=== PATIENT | female | born 1935 | race Caucasian/White ===

== ENCOUNTER 2020-06-05 12:39 | Inpatient (IN) | payer MEDICARE, OTHER ==
[~2020-06-05] VITALS: Ht 154.9 cm; Wt 55.3 kg
--- NOTE | 2020-06-05 12:54 | ED.ADGEN ---
General Adult HPI: HPI: Patient is a 85 year old female brought in by EMS from home for weakness and lethargy beginning since she woke up this morning. Patient states she normally is alert and active and he is in her normal state of health yesterday. Patient has had new cough today. Patient has a history significant for recent extensive bilateral pulmonary embolism and DVT in her right leg. Was hospitalized at [facility] 2 to 3 weeks ago and started on Eliquis, they had planned placement of a IVC filter but were unable due to the extent of the clot up into her IVC. Patient says she has no shortness of breath but denies any chest pain. She has had no lower extremity edema with the blood clots. For EMS she was borderline hypotensive, patient has a history of hypertension and says she took her blood pressure medication this morning, but her blood pressure is usually higher. She denies any recent medication changes. Has a history of asthma, hypertension, hypothyroid and now DVT and PE. She denies any prior history of blood clots. Patient states she has a history of urinary tract infections but denies any urinary symptoms. Patient states she has been having normal p.o. intake, and no vomiting or diarrhea. Review of Systems: Review of Systems: Negative other than mentioned in HPI Current Medications: Current Medications Medications (Trade) Dose Ordered Sig/Danielle Start Time Stop Time Status Last Admin Dose Admin Info (CONTRAST GIVEN -- Rx MONITORING) 1 each PRN DAILY PRN 06/05/20 14:00 06/07/20 13:59 Iohexol (Omnipaque 350 Mg/ml) 75 ml 1X ONCE 06/05/20 14:00 06/05/20 14:01 DC 06/05/20 14:02 75 ML Sodium Chloride 1,000 ml @ 1,000 mls/hr 1X ONCE 06/05/20 13:45 06/05/20 14:44 DC 06/05/20 14:50 1,000 MLS/HR Allergies: Allergies: Allergies Coded Allergies Type Severity Reaction Last Updated Verified Penicillins Allergy Unknown UNKNOWN 06/05/20 Yes Physical Exam: PE: Constitutional: Well developed, well nourished, no acute distress, non-toxic appearance. [] HENT: Normocephalic, atraumatic, bilateral external ears normal, oropharynx moist, no oral exudates, nose normal. [] Eyes: PERRLA, EOMI, conjunctiva normal, no discharge. [] Neck: Normal range of motion, no tenderness, supple, no stridor. [] Cardiovascular:Heart rate regular rhythm, no murmur [] Lungs & Thorax: Bilateral breath sounds clear to auscultation [] faint wheezes in right upper lobe Abdomen: Bowel sounds normal, soft, no tenderness, no masses, no pulsatile masses. [] Skin: Warm, dry, no erythema, no rash. [] Back: No tenderness, no CVA tenderness. [] Extremities: No tenderness, no cyanosis, no clubbing, ROM intact, no edema. [] Neurologic: Alert and oriented X 3, normal motor function, normal sensory function, no focal deficits noted. [] Psychologic: Affect normal, judgement normal, mood normal. [] Current Patient Data: Labs: Laboratory Tests Test 06/05/20 13:03 06/05/20 13:23 06/05/20 14:08 White Blood Count 10.7 x10^3/uL (4.0-11.0) Red Blood Count 4.28 x10^6/uL (3.50-5.40) Hemoglobin 13.8 g/dL (12.0-15.5) Hematocrit 41.0 % (36.0-47.0) Mean Corpuscular Volume 96 fL (79-100) Mean Corpuscular Hemoglobin 32 pg (25-35) Mean Corpuscular Hemoglobin Concent 34 g/dL (31-37) Red Cell Distribution Width 13.7 % (11.5-14.5) Platelet Count 183 x10^3/uL (140-400) Neutrophils (%) (Auto) 90 % (31-73) H Lymphocytes (%) (Auto) 6 % (24-48) L Monocytes (%) (Auto) 3 % (0-9) Eosinophils (%) (Auto) 0 % (0-3) Basophils (%) (Auto) 0 % (0-3) Neutrophils # (Auto) 9.6 x10^3/uL (1.8-7.7) H Lymphocytes # (Auto) 0.7 x10^3/uL (1.0-4.8) L Monocytes # (Auto) 0.3 x10^3/uL (0.0-1.1) Eosinophils # (Auto) 0.0 x10^3/uL (0.0-0.7) Basophils # (Auto) 0.0 x10^3/uL (0.0-0.2) Segmented Neutrophils % 81 % (35-66) H Band Neutrophils % 6 % (0-9) Lymphocytes % 10 % (24-48) L Monocytes % 3 % (0-10) Platelet Estimate Adequate (ADEQUATE) Poikilocytosis Slight Schistocytes Few Prothrombin Time 18.7 SEC (11.7-14.0) H Prothrombin Time INR 1.6 (0.8-1.1) H Activated Partial Thromboplast Time 36 SEC (24-38) Sodium Level 139 mmol/L (136-145) Potassium Level 4.1 mmol/L (3.5-5.1) Chloride Level 104 mmol/L (98-107) Carbon Dioxide Level 23 mmol/L (21-32) Anion Gap 12 (6-14) Blood Urea Nitrogen 20 mg/dL (7-20) Creatinine 1.3 mg/dL (0.6-1.0) H Estimated GFR (Cockcroft-Gault) 38.9 BUN/Creatinine Ratio 15 (6-20) Glucose Level 137 mg/dL (70-99) H Lactic Acid Level 3.0 mmol/L (0.4-2.0) H Calcium Level 8.3 mg/dL (8.5-10.1) L Phosphorus Level 3.1 mg/dL (2.6-4.7) Magnesium Level 1.8 mg/dL (1.8-2.4) Total Bilirubin 0.7 mg/dL (0.2-1.0) Aspartate Amino Transferase (AST) 25 U/L (15-37) Alanine Aminotransferase (ALT) 21 U/L (14-59) Alkaline Phosphatase 49 U/L (46-116) Troponin I Quantitative 0.080 ng/mL (0.000-0.055) DO-Slk-D-Type Natriuretic Peptide 09983 pg/mL (0-449) H Total Protein 5.4 g/dL (6.4-8.2) L Albumin 2.8 g/dL (3.4-5.0) L Albumin/Globulin Ratio 1.1 (1.0-1.7) Thyroid Stimulating Hormone (TSH) 0.344 uIU/mL (0.358-3.74) L Influenza Type A Antigen Negative (NEGATIVE) Influenza Type B Antigen Negative (NEGATIVE) Urine Collection Type Unknown Urine Color Yellow Urine Clarity Clear Urine pH 5.5 (<5.0-8.0) Urine Specific [place] 1.010 (1.000-1.030) Urine Protein Negative mg/dL (NEG-TRACE) Urine Glucose (UA) Negative mg/dL (NEG) Urine Ketones (Stick) Negative mg/dL (NEG) Urine Blood Negative (NEG) Urine Nitrite Negative (NEG) Urine Bilirubin Negative (NEG) Urine Urobilinogen Dipstick 0.2 mg/dL (0.2 mg/dL) Urine Leukocyte Esterase Negative (NEG) Urine RBC 0 /HPF (0-2) Urine WBC 1-4 /HPF (0-4) Urine Squamous Epithelial Cells Mod /LPF Urine Bacteria Many /HPF (0-FEW) Urine Hyaline Casts Few /HPF Laboratory Tests 06/05/20 13:03 Laboratory Tests 06/05/20 13:03 Vital Signs: Vital Signs Date Time Temp Pulse Resp B/P (MAP) Pulse Ox O2 Delivery O2 Flow Rate FiO2 06/05/20 12:39 97.4 77 20 86/54 (65) 97 Room Air 97.4 EKG: EKG: Sinus rhythm, heart rate 71, left axis deviation, borderline ST depressions in V3, V4, V5, V6, no reciprocal changes/elevation identified [] Heart Score: Risk Factors: Risk Factors: DM, Current or recent (<one month) smoker, HTN, HLP, family history of CAD, obesity. Risk Scores: Score 0 - 3: 2.5% MACE over next 6 weeks - Discharge Home Score 4 - 6: 20.3% MACE over next 6 weeks - Admit for Clinical Observation Score 7 - 10: 72.7% MACE over next 6 weeks - Early Invasive Strategies Radiology/Procedures: Radiology/Procedures: EXAM: CT Pulmonary Angiogram INDICATION: Reason: EXTENSIVE BILATERAL PE FOLLOW UP / Spl. Instructions: [id number] 75ML / History: TECHNIQUE: Multi-detector row images were acquired from the thoracic inlet through the upper abdomen with the use of IV contrast. Sagittal and coronal images were acquired from the transaxial data. MIP images of the pulmonary arteries were obtained. All CT scans performed at this facility utilize dose optimization techniques as appropriate to the exam, including the following: Automated exposure control and adjustment of the mA and/or KV according to patient size (this includes techniques or standardized protocols for targeted exams where dose is indication/reason for exam). IV CONTRAST: Administered COMPARISON: None FINDINGS: PULMONARY ARTERIES: Borderline enlargement of the main pulmonary artery to 3.7 cm. There are wall adherent filling defects compatible with chronic clots, including a 3.8 cm long, 1.3 cm deep adherent clot on the posterior wall of the proximal right main pulmonary artery. Additional filling defects in the pulmonary arteries with weblike morphology are seen, compatible with evolving pulmonary emboli such as in the anterior basal right lower lobe. There is persistent occlusion of the anterior segment right upper lobe pulmonary artery. CARDIOVASCULAR: Scattered aortic mural calcifications. Normal caliber thoracic aorta measuring 3.3 cm in the ascending portion. Coronary calcifications also present. The heart is mildly enlarged but shows thickened epicardial fat, measuring approximately 1.8 cm over the right ventricle free wall. There is no dilation of the right ventricular chamber to suggest right heart strain. There is thinning of the myocardium of the apex of the left ventricle, at risk for eventual formation of a small apical aneurysm. MEDIASTINUM & CHANDRAKANT: No adenopathy or masses. LUNGS: Reticular opacities in the right middle lobe are present, nonspecific and could reflect evolving infarcts versus subsegmental atelectatic changes or atypical infection. PLEURAL SPACE: No pleural effusions or pneumothorax. OSSEOUS & SOFT TISSUE: Unremarkable ABDOMEN: The visualized portions of the upper abdomen are unremarkable. IMPRESSION: 1. Chronic appearing pulmonary emboli, with occlusion of the anterior right upper lobe pulmonary artery and patchy groundglass opacities in the right upper lobe that could reflect evolving infarcts versus pneumonitis from atypical infection. 2. 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 [] Course & Med Decision Making: Course & Med Decision Making Pertinent Labs and Imaging studies reviewed. (See chart for details) Consulted IR for the pulmonary embolus attached to right pulmonary artery wall. The bacteremia recommended, will follow the patient for possible IVC filter placement. Would like imaging of the IVC and iliacs. We will do tomorrow due to patient's limited EGFR and she is already heparin contrast load today. Consulted hospitalist for admission, patient agrees to plan [] Sierra Disclaimer: Sierra Disclaimer: This electronic medical record was generated, in whole or in part, using a voice recognition dictation system. Departure Departure Impression: Primary Impression: Pulmonary emboli Disposition: ADMITTED INPT THIS HOSP Admitting Physician: ALICIA Condition: STABLE Referrals: ROSCOE MELENDEZ (PCP) DAMON HOUSER MD Jun 05, 2020 12:54
[2020-06-05] MEDS ORDERED: IV NORMAL SALINE 1000ML BAG 1,000 ML IV ONE ×2 (13:00→13:45)
[2020-06-05 13:19] LABS: BASO % 0 % (0-3); EOS % 0 % (0-3); HEMOGLOBIN 13.8 g/dL (12.0-15.5); LYMPH # 0.7 x10^3/uL (1.0-4.8); LYMPH % 6 % (24-48); MEAN CORPUSCULAR HEMOGLOBIN 32 pg (25-35); MEAN CORPUSCULAR HGB CONC 34 g/dL (31-37); MEAN CORPUSCULAR VOLUME 96 fL (79-100); MONO # 0.3 x10^3/uL (0.0-1.1); MONO % 3 % (0-9); NEUT # 9.6 x10^3/uL (1.8-7.7); NEUT % 90 % (31-73); PLATELET COUNT 183 x10^3/uL (140-400); RED BLOOD COUNT 4.28 x10^6/uL (3.50-5.40); RED CELL DISTRIBUTION WIDTH 13.7 % (11.5-14.5); WHITE BLOOD COUNT 10.7 x10^3/uL (4.0-11.0)
[2020-06-05 13:28] LABS: PROTHROMBIN TIME PATIENT 18.7 SEC (11.7-14.0)
[2020-06-05 13:36] LABS: CALCIUM 8.3 mg/dL (8.5-10.1); CREATININE 1.3 mg/dL (0.6-1.0); GFR 38.9; POTASSIUM 4.1 mmol/L (3.5-5.1)
[2020-06-05 13:48] LABS: ALBUMIN 2.8 g/dL (3.4-5.0); ALBUMIN/GLOBULIN RATIO 1.1 (1.0-1.7); MAGNESIUM 1.8 mg/dL (1.8-2.4); PHOSPHORUS 3.1 mg/dL (2.6-4.7); TOTAL BILIRUBIN 0.7 mg/dL (0.2-1.0); TOTAL PROTEIN 5.4 g/dL (6.4-8.2)
[2020-06-05 13:55] LABS: INFLUENZA A PATIENT NEGATIVE (NEGATIVE); INFLUENZA B PATIENT NEGATIVE (NEGATIVE)
[2020-06-05] MEDS ORDERED: CONTRAST GIVEN. MC PRN (14:00)
[2020-06-05] MEDS ORDERED: IOHEXOL 350 MG/ML 100 ML VIAL. IV ONE (14:00)
[2020-06-05] MEDS ORDERED: HEPARIN 25,000UTS/250ML PREMIX 250 ML IV PRN (14:30)
[2020-06-05] MEDS ORDERED: HEPARIN for IV BOLUS 10,000 UNIT/10 ML VIAL. IV PRN ×2 (14:30)
[2020-06-05] MEDS ORDERED: HEPARIN for IV BOLUS 10,000 UNIT/10 ML VIAL. IV ONE (14:30)
[2020-06-05 14:32] LABS: BILIRUBIN,URINE NEGATIVE (NEG); CLARITY,URINE CLEAR; COLOR,URINE YELLOW; NITRITE,URINE NEGATIVE (NEG); PH,URINE 5.5 (<5.0-8.0); PROTEIN,URINE NEGATIVE (NEG-TRACE); UROBILINOGEN,URINE 0.2 mg/dL (0.2 mg/dL)
[2020-06-05 14:38] LABS: % BANDS 6 % (0-9); % LYMPHS 10 % (24-48); % MONOS 3 % (0-10); % SEGS 81 % (35-66); PLT ESTIMATE ADEQUATE (ADEQUATE); POIKILOCYTOSIS SLIGHT; SCHISTOCYTES FEW
[2020-06-05 14:41] LABS: BACTERIA,URINE MANY /HPF (0-FEW); HYALINE CASTS, URINE FEW /HPF
[2020-06-05 14:42] LABS: RBC,URINE 0 /HPF (0-2)
--- NOTE | 2020-06-05 15:26 | RAD ---
EXAM: CT Pulmonary Angiogram INDICATION: Reason: EXTENSIVE BILATERAL PE FOLLOW UP / Spl. Instructions: [id number] 75ML / History: TECHNIQUE: Multi-detector row images were acquired from the thoracic inlet through the upper abdomen with the use of IV contrast. Sagittal and coronal images were acquired from the transaxial data. CA P images of the pulmonary arteries were obtained. All CT scans performed at this facility utilize dos e optimization techniques as appropriate to the exam, including the following: Automated exposure con trol and adjustment of the mA and/or KV according to patient size (this includes techniques or standa rdized protocols for targeted exams where dose is indication/reason for exam). IV CONTRAST: Administered COMPARISON: None FINDINGS: PULMONARY ARTERIES: Borderline enlargement of the main pulmonary artery to 3.7 cm. There are wall ad herent filling defects compatible with chronic clots, including a 3.8 cm long, 1.3 cm deep adherent c lot on the posterior wall of the proximal right main pulmonary artery. Additional filling defects in the pulmonary arteries with weblike morphology are seen, compatible with evolving pulmonary emboli velazquez ch as in the anterior basal right lower lobe. There is persistent occlusion of the anterior segment r ight upper lobe pulmonary artery. CARDIOVASCULAR: Scattered aortic mural calcifications. Normal caliber thoracic aorta measuring 3.3 c m in the ascending portion. Coronary calcifications also present. The heart is mildly enlarged but sh ows thickened epicardial fat, measuring approximately 1.8 cm over the right ventricle free wall. Ther e is no dilation of the right ventricular chamber to suggest right heart strain. There is thinning of the myocardium of the apex of the left ventricle, at risk for eventual formation of a small apical a neurysm. MEDIASTINUM & CHANDRAKANT: No adenopathy or masses. LUNGS: Reticular opacities in the right middle lobe are present, nonspecific and could reflect evolvi ng infarcts versus subsegmental atelectatic changes or atypical infection. PLEURAL SPACE: No pleural effusions or pneumothorax. OSSEOUS & SOFT TISSUE: Unremarkable ABDOMEN: The visualized portions of the upper abdomen are unremarkable. IMPRESSION: 1. Chronic appearing pulmonary emboli, with occlusion of the anterior right upper lobe pulmonary blake ry and patchy groundglass opacities in the right upper lobe that could reflect evolving infarcts vers us pneumonitis from atypical infection. 2. 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 FOR INTERNAL CODING PURPOSES Critical result: Findings discussed with Dr. Meaghan Cerrato at 06/05/2020 2:45 PM. RESULT CODE: (C) Electronically signed by: Pat Johnson MD (06/05/2020 3:24 PM) [id number]
--- NOTE | 2020-06-05 15:29 | EKG ---
[facility] [address] [place] [address] Test Date: 2020-06-05 Test Time: 12:52:16 Pat Name: IAIN CORTEZ Department: Room: Gender: F Proctologist: : 1935 Requested By: DAMON HOUSER Order Number: [id number] Reading MD: Measurements Intervals [place] Rate: 71 P: 12 WA: 152 QRS: -26 QRSD: 74 T: 14 QT: 378 QTc: 415 Interpretive Statements SINUS RHYTHM ATRIAL PREMATURE COMPLEX(ES) LEFTWARD AXIS CONSIDER LEFT VENTRICULAR HYPERTROPHY ST & T ABNORMALITY, CONSIDER ANTERIOR ISCHEMIA OR LEFT VENTRICULAR STRAIN ABNORMAL ECG RI6.02 No previous ECG available for comparison
[2020-06-05] MEDS ORDERED: MORPHINE SULFATE 2 MG/ML VIAL. IV PRN (15:45)
[2020-06-05] MEDS ORDERED: MAGNESIUM HYDROXIDE 2,400 MG/30 ML ORAL.SUSP. PO PRN (15:45)
[2020-06-05] MEDS ORDERED: MAG HYDROX/ALUMINUM HYD/SIMETH 30 ML ORAL.SUSP PO PRN (15:45)
[2020-06-05] MEDS ORDERED: BISACODYL 10 MG SUPP.RECT. PR PRN (15:45)
[2020-06-05] MEDS ORDERED: CALCIUM CARBONATE 500 MG TAB.CHEW PO PRN (15:45)
[2020-06-05] MEDS ORDERED: ZOLPIDEM 5 MG TABLET. PO PRN (15:45)
[2020-06-05] MEDS ORDERED: ONDANSETRON PF 4 MG/2 ML VIAL. IVP PRN (15:45)
[2020-06-05] MEDS ORDERED: ACETAMINOPHEN 325 MG TABLET. PO PRN (15:45)
--- NOTE | 2020-06-05 16:14 | PDOC1 ---
History and Physical Date of Admission Date of Admission DATE: 06/05/20 TIME: 15:54 Identification/Chief Complaint Chief Complaint Cough, shortness of breath, weakness Source Source: Chart review, Patient History of Present Illness History of Present Illness Patient is a 85-year-old female with past medical history PE on Eliquis, who presents to the ER with complaints of shortness of breath since this morning. She reports associated nonproductive cough, weakness, lethargy and nausea. She was recently treated at [facility] for extensive bilateral pulmonary embolism and DVT in the right lower extremity. She was started on Eliquis with plan to place IVC filter, but this was unable to be performed due to the extent of her clot up to her IVC. She denies any prior history of DVT or PE, and states she has been compliant with her Eliquis. Of note she was receiving physical therapy at home, and her therapist tested positive for COVID-19. Patient and family were tested with negative results. CTA on admission compatible with evolving pulmonary emboli such as in the anterior basal right lower lobe. EKG is concerning for right heart strain. Will admit patient for further medical management. Past Medical History Past Medical History DVT, PE, hypertension, asthma, UTI Past Surgical History Past Surgical History Appendectomy, cholecystectomy, hysterectomy, shoulder surgery Family History Family History Denies family history of DVT or PE Social History Smoke: No ALCOHOL: none Drugs: None Current Medications Current Medications Current Medications Sodium Chloride 1,000 ml @ 1,000 mls/hr 1X ONCE IV Last administered on 06/05/20at 13:10; Start 06/05/20 at 13:00; Stop 06/05/20 at 13:59; Status DC Sodium Chloride 1,000 ml @ 1,000 mls/hr 1X ONCE IV Last administered on 06/05/20at 14:50; Start 06/05/20 at 13:45; Stop 06/05/20 at 14:44; Status DC Iohexol (Omnipaque 350 Mg/ml) 75 ml 1X ONCE IV Last administered on 06/05/20at 14:02; Start 06/05/20 at 14:00; Stop 06/05/20 at 14:01; Status DC Info (CONTRAST GIVEN -- Rx MONITORING) 1 each PRN DAILY PRN MC SEE COMMENTS; Start 06/05/20 at 14:00; Stop 06/07/20 at 13:59 Heparin Sodium (Porcine) (Heparin Sodium) 4,350 unit 1X ONCE IV Last administered on 06/05/20at 14:53; Start 06/05/20 at 14:30; Stop 06/05/20 at 14 :31; Status DC Heparin Sodium/ Dextrose 250 ml @ 8.72 mls/hr CONT PRN IV PER PROTOCOL Last administered on 06/05/20at 14:56; Start 06/05/20 at 14:30 Heparin Sodium (Porcine) (Heparin Sodium) 1,650 unit PRN Q6HRS PRN IV FOR UFH LEVEL LESS THAN 0.2; Start 06/05/20 at 14:30 Heparin Sodium (Porcine) (Heparin Sodium) 800 unit PRN Q6HRS PRN IV FOR UFH LEVEL 0.2 - 0.29; Start 06/05/20 at 14:30 Ondansetron HCl (Zofran) 4 mg PRN Q6HRS PRN IVP NAUSEA/VOMITING; Start 06/05/20 at 15:45 Al Hydroxide/Mg Hydroxide (Mylanta Plus Xs) 30 ml PRN Q3HRS PRN PO HEARTBURN / GAS; Start 06/05/20 at 15:45 Calcium Carbonate/ Glycine (Tums) 500 mg PRN Q3HRS PRN PO UPSET STOMACH; Start 06/05/20 at 15:45 Zolpidem Tartrate (Ambien) 5 mg PRN QHS PRN PO INSOMNIA, MAY REPEAT IN 1HR; Start 06/05/20 at 15:45 Morphine Sulfate (Morphine Sulfate) 2 mg PRN Q1HR PRN IV PAIN; Start 06/05/20 at 15:45 Acetaminophen (Tylenol) 650 mg PRN Q6HRS PRN PO Headaches, Temp > 101.5F; Start 06/05/20 at 15:45 Magnesium Hydroxide (Milk Of Magnesia) 2,400 mg PRN Q12HR PRN PO CONSTIPATION; Start 06/05/20 at 15:45 Bisacodyl (Dulcolax Supp) 10 mg PRN DAILY PRN [place] CONSTIPATION; Start 06/05/20 at 15:45 Sodium Chloride 1,000 ml @ 75 mls/hr [id number] IV ; Start 06/05/20 at 16:00 Tramadol HCl (Ultram) 50 mg PRN Q6HRS PRN PO PAIN; Start 06/05/20 at 16:00 Allergies Allergies: Coded Allergies: Penicillins (Verified Allergy, Unknown, UNKNOWN, 06/05/20) ROS Review of System GENERAL: Weakness. Denies history of fever or recent weight change. SKIN: No bruising, hair changes or rashes. EYES: No blurred, double or loss of vision. NOSE AND THROAT: No history of nosebleeds, hoarseness or sore throat. HEART: Denies chest pain, denies palpitations. LUNGS: Cough. Denies hemoptysis. GASTROINTESTINAL: Nausea. Denies vomiting, abdominal pain. GENITOURINARY: Denies dysuria, frequency, urgency, hematuria. NEUROLOGIC: Denies history of numbness, tingling, tremor or weakness. PSYCHIATRIC: Denies anxiety, denies depression. ENDOCRINE: No history of heat or cold intolerance, polyuria or polydipsia. EXTREMITIES: Denies muscle weakness, joint pain, pain on walking or stiffness. Physical Exam Physical Exam General: Alert, Oriented X3, Cooperative, No acute distress HEENT: PERRLA, EOMI Lungs: Bilateral crackles, breathing on room air Heart: RRR, no murmurs Cardiovascular: S1, S2 Abdomen: Normal bowel sounds, Soft, No tenderness Extremities: No clubbing, No cyanosis Skin: No rashes, No significant lesion Neuro: Normal speech, Normal tone, Sensation intact Psych/Mental Status: Mental status NL, Mood NL Vitals Vitals Vital Signs Date Time Temp Pulse Resp B/P (MAP) Pulse Ox O2 Delivery O2 Flow Rate FiO2 06/05/20 12:39 97.4 77 20 86/54 (65) 97 Room Air 97.4 Labs Labs Laboratory Tests Test 06/05/20 13:03 06/05/20 13:23 06/05/20 14:08 White Blood Count 10.7 x10^3/uL (4.0-11.0) Red Blood Count 4.28 x10^6/uL (3.50-5.40) Hemoglobin 13.8 g/dL (12.0-15.5) Hematocrit 41.0 % (36.0-47.0) Mean Corpuscular Volume 96 fL (79-100) Mean Corpuscular Hemoglobin 32 pg (25-35) Mean Corpuscular Hemoglobin Concent 34 g/dL (31-37) Red Cell Distribution Width 13.7 % (11.5-14.5) Platelet Count 183 x10^3/uL (140-400) Neutrophils (%) (Auto) 90 % (31-73) Lymphocytes (%) (Auto) 6 % (24-48) Monocytes (%) (Auto) 3 % (0-9) Eosinophils (%) (Auto) 0 % (0-3) Basophils (%) (Auto) 0 % (0-3) Neutrophils # (Auto) 9.6 x10^3/uL (1.8-7.7) Lymphocytes # (Auto) 0.7 x10^3/uL (1.0-4.8) Monocytes # (Auto) 0.3 x10^3/uL (0.0-1.1) Eosinophils # (Auto) 0.0 x10^3/uL (0.0-0.7) Basophils # (Auto) 0.0 x10^3/uL (0.0-0.2) Segmented Neutrophils % 81 % (35-66) Band Neutrophils % 6 % (0-9) Lymphocytes % 10 % (24-48) Monocytes % 3 % (0-10) Platelet Estimate Adequate (ADEQUATE) Poikilocytosis Slight Schistocytes Few Prothrombin Time 18.7 SEC (11.7-14.0) Prothromb Time International Ratio 1.6 (0.8-1.1) Activated Partial Thromboplast Time 36 SEC (24-38) Sodium Level 139 mmol/L (136-145) Potassium Level 4.1 mmol/L (3.5-5.1) Chloride Level 104 mmol/L (98-107) Carbon Dioxide Level 23 mmol/L (21-32) Anion Gap 12 (6-14) Blood Urea Nitrogen 20 mg/dL (7-20) Creatinine 1.3 mg/dL (0.6-1.0) Estimated GFR (Cockcroft-Gault) 38.9 BUN/Creatinine Ratio 15 (6-20) Glucose Level 137 mg/dL (70-99) Lactic Acid Level 3.0 mmol/L (0.4-2.0) Calcium Level 8.3 mg/dL (8.5-10.1) Phosphorus Level 3.1 mg/dL (2.6-4.7) Magnesium Level 1.8 mg/dL (1.8-2.4) Total Bilirubin 0.7 mg/dL (0.2-1.0) Aspartate Amino Transf (AST/SGOT) 25 U/L (15-37) Alanine Aminotransferase (ALT/SGPT) 21 U/L (14-59) Alkaline Phosphatase 49 U/L (46-116) Troponin I Quantitative 0.080 ng/mL (0.000-0.055) FZ-Ppy-Q-Type Natriuretic Peptide 07580 pg/mL (0-449) Total Protein 5.4 g/dL (6.4-8.2) Albumin 2.8 g/dL (3.4-5.0) Albumin/Globulin Ratio 1.1 (1.0-1.7) Thyroid Stimulating Hormone (TSH) 0.344 uIU/mL (0.358-3.74) Influenza Type A Antigen Negative (NEGATIVE) Influenza Type B Antigen Negative (NEGATIVE) Urine Collection Type Unknown Urine Color Yellow Urine Clarity Clear Urine pH 5.5 (<5.0-8.0) Urine Specific [place] 1.010 (1.000-1.030) Urine Protein Negative mg/dL (NEG-TRACE) Urine Glucose (UA) Negative mg/dL (NEG) Urine Ketones (Stick) Negative mg/dL (NEG) Urine Blood Negative (NEG) Urine Nitrite Negative (NEG) Urine Bilirubin Negative (NEG) Urine Urobilinogen Dipstick 0.2 mg/dL (0.2 mg/dL) Urine Leukocyte Esterase Negative (NEG) Urine RBC 0 /HPF (0-2) Urine WBC 1-4 /HPF (0-4) Urine Squamous Epithelial Cells Mod /LPF Urine Bacteria Many /HPF (0-FEW) Urine Hyaline Casts Few /HPF Laboratory Tests Test 06/05/20 13:03 06/05/20 13:23 06/05/20 14:08 White Blood Count 10.7 x10^3/uL (4.0-11.0) Red Blood Count 4.28 x10^6/uL (3.50-5.40) Hemoglobin 13.8 g/dL (12.0-15.5) Hematocrit 41.0 % (36.0-47.0) Mean Corpuscular Volume 96 fL (79-100) Mean Corpuscular Hemoglobin 32 pg (25-35) Mean Corpuscular Hemoglobin Concent 34 g/dL (31-37) Red Cell Distribution Width 13.7 % (11.5-14.5) Platelet Count 183 x10^3/uL (140-400) Neutrophils (%) (Auto) 90 % (31-73) Lymphocytes (%) (Auto) 6 % (24-48) Monocytes (%) (Auto) 3 % (0-9) Eosinophils (%) (Auto) 0 % (0-3) Basophils (%) (Auto) 0 % (0-3) Neutrophils # (Auto) 9.6 x10^3/uL (1.8-7.7) Lymphocytes # (Auto) 0.7 x10^3/uL (1.0-4.8) Monocytes # (Auto) 0.3 x10^3/uL (0.0-1.1) Eosinophils # (Auto) 0.0 x10^3/uL (0.0-0.7) Basophils # (Auto) 0.0 x10^3/uL (0.0-0.2) Segmented Neutrophils % 81 % (35-66) Band Neutrophils % 6 % (0-9) Lymphocytes % 10 % (24-48) Monocytes % 3 % (0-10) Platelet Estimate Adequate (ADEQUATE) Poikilocytosis Slight Schistocytes Few Prothrombin Time 18.7 SEC (11.7-14.0) Prothromb Time International Ratio 1.6 (0.8-1.1) Activated Partial Thromboplast Time 36 SEC (24-38) Sodium Level 139 mmol/L (136-145) Potassium Level 4.1 mmol/L (3.5-5.1) Chloride Level 104 mmol/L (98-107) Carbon Dioxide Level 23 mmol/L (21-32) Anion Gap 12 (6-14) Blood Urea Nitrogen 20 mg/dL (7-20) Creatinine 1.3 mg/dL (0.6-1.0) Estimated GFR (Cockcroft-Gault) 38.9 BUN/Creatinine Ratio 15 (6-20) Glucose Level 137 mg/dL (70-99) Lactic Acid Level 3.0 mmol/L (0.4-2.0) Calcium Level 8.3 mg/dL (8.5-10.1) Phosphorus Level 3.1 mg/dL (2.6-4.7) Magnesium Level 1.8 mg/dL (1.8-2.4) Total Bilirubin 0.7 mg/dL (0.2-1.0) Aspartate Amino Transf (AST/SGOT) 25 U/L (15-37) Alanine Aminotransferase (ALT/SGPT) 21 U/L (14-59) Alkaline Phosphatase 49 U/L (46-116) Troponin I Quantitative 0.080 ng/mL (0.000-0.055) PC-Qkc-M-Type Natriuretic Peptide 51167 pg/mL (0-449) Total Protein 5.4 g/dL (6.4-8.2) Albumin 2.8 g/dL (3.4-5.0) Albumin/Globulin Ratio 1.1 (1.0-1.7) Thyroid Stimulating Hormone (TSH) 0.344 uIU/mL (0.358-3.74) Influenza Type A Antigen Negative (NEGATIVE) Influenza Type B Antigen Negative (NEGATIVE) Urine Collection Type Unknown Urine Color Yellow Urine Clarity Clear Urine pH 5.5 (<5.0-8.0) Urine Specific [place] 1.010 (1.000-1.030) Urine Protein Negative mg/dL (NEG-TRACE) Urine Glucose (UA) Negative mg/dL (NEG) Urine Ketones (Stick) Negative mg/dL (NEG) Urine Blood Negative (NEG) Urine Nitrite Negative (NEG) Urine Bilirubin Negative (NEG) Urine Urobilinogen Dipstick 0.2 mg/dL (0.2 mg/dL) Urine Leukocyte Esterase Negative (NEG) Urine RBC 0 /HPF (0-2) Urine WBC 1-4 /HPF (0-4) Urine Squamous Epithelial Cells Mod /LPF Urine Bacteria Many /HPF (0-FEW) Urine Hyaline Casts Few /HPF Images Images EXAM: CT Pulmonary Angiogram INDICATION: Reason: EXTENSIVE BILATERAL PE FOLLOW UP / Spl. Instructions: [id number] / History: TECHNIQUE: Multi-detector row images were acquired from the thoracic inlet through the upper abdomen with the use of IV contrast. Sagittal and coronal images were acquired from the transaxial data. MIP images of the pulmonary arteries were obtained. All CT scans performed at this facility utilize dose optimization techniques as appropriate to the exam, including the following: Automated exposure control and adjustment of the mA and/or KV according to patient size (this includes techniques or standardized protocols for targeted exams where dose is indication/reason for exam). IV CONTRAST: Administered COMPARISON: None FINDINGS: PULMONARY ARTERIES: Borderline enlargement of the main pulmonary artery to 3.7 cm. There are wall adherent filling defects compatible with chronic clots, including a 3.8 cm long, 1.3 cm deep adherent clot on the posterior wall of the proximal right main pulmonary artery. Additional filling defects in the pulmonary arteries with weblike morphology are seen, compatible with evolving pulmonary emboli such as in the anterior basal right lower lobe. There is persistent occlusion of the anterior segment right upper lobe pulmonary artery. CARDIOVASCULAR: Scattered aortic mural calcifications. Normal caliber thoracic aorta measuring 3.3 cm in the ascending portion. Coronary calcifications also present. The heart is mildly enlarged but shows thickened epicardial fat, measuring approximately 1.8 cm over the right ventricle free wall. There is no dilation of the right ventricular chamber to suggest right heart strain. There is thinning of the myocardium of the apex of the left ventricle, at risk for eventual formation of a small apical aneurysm. MEDIASTINUM & CHNADRAKANT: No adenopathy or masses. LUNGS: Reticular opacities in the right middle lobe are present, nonspecific and could reflect evolving infarcts versus subsegmental atelectatic changes or atypical infection. PLEURAL SPACE: No pleural effusions or pneumothorax. OSSEOUS & SOFT TISSUE: Unremarkable ABDOMEN: The visualized portions of the upper abdomen are unremarkable. IMPRESSION: 1. Chronic appearing pulmonary emboli, with occlusion of the anterior right upper lobe pulmonary artery and patchy groundglass opacities in the right upper lobe that could reflect evolving infarcts versus pneumonitis from atypical infection. 2. 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 VTE Prophylaxis Ordered VTE Prophylaxis Devices: No VTE Pharmacological Prophylaxi: Yes Assessment/Plan Assessment/Plan Pulmonary emboli Failure outpatient treatment Lactic acidosis KAYDEN Vasomotor nephropathy Plan: Admit patient on IV heparin drip Consultation was placed to IR; order CTA abdomen pelvis in the morning; IV normal saline to clear IV contrast Bilateral lower extremity venous Dopplers Consultation with cardiology, EKG concerning for right heart strain and CTA chest showing advanced cardiovascular disease with calcifications of coronary arteries Consultation to pulmonology Consultation to hematology/oncology due to failure of outpatient Eliquis treatment Patient received sepsis fluid bolus IV Levaquin 750 mg x 1 to cover for possible atypical infection FEN - Cardiac diet PPX - Heparin FULL CODE Dispo - inpatient for above Justifications for Admission Other Justification PE, failed outpatient treatment SHAYNE RIVAS MD Jun 05, 2020 16:14
[2020-06-05 19:00] VITALS: BP 128/65
--- NOTE | 2020-06-05 21:17 | CONS ---
DATE OF CONSULTATION: 06/05/2020 PULMONARY CONSULTATION ATTENDING PHYSICIAN: Dr. Richardson. REASON FOR CONSULTATION: Pulmonary embolism. HISTORY OF PRESENT ILLNESS: The patient is a pleasant 85-year-old female who was diagnosed with acute pulmonary embolism, requiring hospitalization at [facility] about 4 weeks ago. At that time, the patient also had extensive DVT and they were unable to place IVC filter due to the extent of the clot up to her IVC. The patient had no prior history of DVT or pulmonary embolism. She was discharged home on Eliquis. She presented to the hospital with complaint of some shortness of breath. She was complaining of lightheaded and dizziness as well. She had some weakness, lethargy and nausea. The patient underwent imaging study. I reviewed the patient's CTA chest and it shows evidence of pulmonary hypertension with enlargement of the main pulmonary artery. There is a filling defect on the wall with chronic appearing clot in the proximal right main pulmonary artery. There were additional defects seen with web-like morphology, especially in the right lower lobe. There is also occlusion of the anterior right upper lobe pulmonary artery. The patient had no pleural effusions or pneumothorax. There is fine reticular opacities in the right middle lobe, which may reflect infarction. The patient states that there is no obvious risk factors. She has been pretty active. She has no known cancer, although she does report 20-pound weight loss in the last month. She states she has been treated for Graves' disease and she thinks the medications that she is on maybe contributing to her symptoms. She has a son who was diagnosed with DVT at age 48. The patient is not on any estrogens. Consultation is requested for further evaluation and management. Currently her vital signs have been stable with a systolic blood pressure of 111, initially was 86. I have been asked to see her for further evaluation. I did the consultation via telemedicine. PAST MEDICAL HISTORY: History of recent extensive DVT and pulmonary embolism. History of systemic hypertension, asthma, and UTI. PAST SURGICAL HISTORY: Appendectomy, cholecystectomy, hysterectomy and shoulder surgery. FAMILY HISTORY: Son has DVT at age 48. REVIEW OF SYSTEMS: Twelve-point system obtained, pertinent positives discussed in my history of present illness, otherwise noncontributory. All systems that were negative were reviewed as well. ALLERGIES: PENICILLIN. MEDICATIONS: Reviewed as listed in the MRAD including full-dose heparin. PHYSICAL EXAMINATION: VITAL SIGNS: Reviewed. She is currently saturating of 96% on room air. Afebrile. Blood pressure is stable. GENERAL: She is in no obvious respiratory distress. HEENT: Visual exam was done via telemedicine. LUNGS: No paradoxical breathing. SKIN: No skin rash. NEUROLOGIC: No significant focal weakness. EXTREMITIES: She moves her extremities. LABORATORY DATA: Reviewed. Her influenza screen is negative. Her troponin is 0.08. The proBNP is 15,176. TSH is 0.34. INR 1.6. White cell count 10.7, hemoglobin 13.8 and platelets are 183. IMPRESSION: 1. 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 At that time, she was subsequently discharged on Eliquis. She now presents with dyspnea, although she is not requiring any supplemental oxygen. Her CT angiogram is concerning for chronic thromboembolic disease with a clot/filling defect adherent to the proximal wall of the right main pulmonary artery. Additional defects were seen with a web-like morphology in the right lower lobe, basal pulmonary artery. There is also occlusion of the anterior segment of the right upper lobe pulmonary artery. She has evidence of pulmonary hypertension as well. She would require workup for hypercoagulable state as her son has DVT at age 48. She has lost 20 pounds in last one month, which could be related to her Graves' disease, but she would need a malignancy workup as well. 2. No significant tobacco history. 3. No prior history of thromboembolic disease. No recent immobilization trauma and no known cancers. 4. Pulmonary hypertension suspected on CTA chest. RECOMMENDATIONS: 1. We will continue with present heparin protocol. 2. We will obtain report of the CT angiogram and venous Dopplers from [facility]. 3. The patient would be a good candidate for IVC filter. Due to her advanced age, she may be a risk for fall. For now, I would continue with anticoagulation with heparin and would initiate back to Eliquis in the next 48 hours. 4. Obtain echocardiogram to assess for pulmonary hypertension. 5. She will need a repeat CT angiogram in 6-8 weeks to assess for persistent chronic thromboembolic disease. 6. Hypercoagulable panel as an outpatient. 7. CT abdomen and pelvis to rule out any occult malignancy in the abdomen and pelvis. 8. We will consult IR for IVC filter. Discussed with RN. We will follow along with you. ALANA TERESA MD DR: SHRUTHI/xavier JOB#: [id number] / [id number]
[2020-06-05 23:00] VITALS: BP 88/60
[2020-06-05] MEDS: IV NORMAL SALINE 1000ML BAG 1,000 ML IV SCH (23:46)
[2020-06-05] MEDS: traMADol 50 MG TABLET PO PRN (23:47)
[2020-06-06 03:00] VITALS: BP 153/71
[2020-06-06] MEDS ORDERED: LEVO75TA5 PO (03:53)
[2020-06-06] MEDS ORDERED: BUDE10.22 IH (03:53)
[2020-06-06] MEDS ORDERED: ATEN50TA PO (03:53)
[2020-06-06] MEDS ORDERED: VITA80003 PO (03:53)
[2020-06-06] MEDS ORDERED: ALEN70TA60 PO (03:53)
[2020-06-06] MEDS ORDERED: ALBU2.5V8 IH (03:53)
[2020-06-06] MEDS ORDERED: ASCO500C PO (03:53)
[2020-06-06] MEDS ORDERED: TRAM50TA PO (03:53)
[2020-06-06] MEDS ORDERED: FERR325T14 PO (03:53)
[2020-06-06] MEDS ORDERED: OMEG1CAP38 PO (03:53)
[2020-06-06] MEDS ORDERED: ESTR2TAB PO (03:53)
[2020-06-06] MEDS ORDERED: PRED20TA PO (03:53)
[2020-06-06] MEDS ORDERED: APIX5TAB PO (03:53)
[2020-06-06] MEDS ORDERED: PANT40TA6 PO (03:53)
[2020-06-06 07:46] VITALS: BP 136/66
--- NOTE | 2020-06-06 08:47 | RAD ---
EXAM: Bilateral lower extremity venous Doppler. HISTORY: Pulmonary emboli. Covid positive. COMPARISON: CT pulmonary angiogram of 06/05/2020 FINDINGS: Grayscale and Doppler analysis of the both lower extremity deep venous systems was performe d with graded compression and augmentation. The common femoral, greater saphenous, superficial femora l, popliteal and calf veins were assessed. There is no evidence of deep venous thrombosis. IMPRESSION: 1. No evidence of deep venous thrombosis. Electronically signed by: Pat Johnson MD (06/06/2020 8:45 AM) [id number]
--- NOTE | 2020-06-06 10:04 | PDOC ---
PULMONARY PROGRESS NOTES DATE: 06/06/20 TIME: 10:00 Subjective no soa, remains on RA Had epistaxis last night, heparin was shut off Vitals Vital Signs Date Time Temp Pulse Resp B/P (MAP) Pulse Ox O2 Delivery O2 Flow Rate FiO2 06/06/20 07:46 98.8 68 18 136/66 (89) 96 Room Air 98.8 ROS: No Chest Pain, No Increase Cough General: Alert, No acute distress Lungs: Clear Cardiovascular: S1 Abdomen: Soft Neuro Exam: Alert Extremities: No Edema Skin: Warm Labs Laboratory Tests Test 06/05/20 13:03 06/05/20 13:23 06/05/20 14:08 06/05/20 16:55 White Blood Count 10.7 x10^3/uL (4.0-11.0) Red Blood Count 4.28 x10^6/uL (3.50-5.40) Hemoglobin 13.8 g/dL (12.0-15.5) Hematocrit 41.0 % (36.0-47.0) Mean Corpuscular Volume 96 fL (79-100) Mean Corpuscular Hemoglobin 32 pg (25-35) Mean Corpuscular Hemoglobin Concent 34 g/dL (31-37) Red Cell Distribution Width 13.7 % (11.5-14.5) Platelet Count 183 x10^3/uL (140-400) Neutrophils (%) (Auto) 90 % (31-73) Lymphocytes (%) (Auto) 6 % (24-48) Monocytes (%) (Auto) 3 % (0-9) Eosinophils (%) (Auto) 0 % (0-3) Basophils (%) (Auto) 0 % (0-3) Neutrophils # (Auto) 9.6 x10^3/uL (1.8-7.7) Lymphocytes # (Auto) 0.7 x10^3/uL (1.0-4.8) Monocytes # (Auto) 0.3 x10^3/uL (0.0-1.1) Eosinophils # (Auto) 0.0 x10^3/uL (0.0-0.7) Basophils # (Auto) 0.0 x10^3/uL (0.0-0.2) Segmented Neutrophils % 81 % (35-66) Band Neutrophils % 6 % (0-9) Lymphocytes % 10 % (24-48) Monocytes % 3 % (0-10) Platelet Estimate Adequate (ADEQUATE) Poikilocytosis Slight Schistocytes Few Prothrombin Time 18.7 SEC (11.7-14.0) Prothromb Time International Ratio 1.6 (0.8-1.1) Activated Partial Thromboplast Time 36 SEC (24-38) Sodium Level 139 mmol/L (136-145) Potassium Level 4.1 mmol/L (3.5-5.1) Chloride Level 104 mmol/L (98-107) Carbon Dioxide Level 23 mmol/L (21-32) Anion Gap 12 (6-14) Blood Urea Nitrogen 20 mg/dL (7-20) Creatinine 1.3 mg/dL (0.6-1.0) Estimated GFR (Cockcroft-Gault) 38.9 BUN/Creatinine Ratio 15 (6-20) Glucose Level 137 mg/dL (70-99) Lactic Acid Level 3.0 mmol/L (0.4-2.0) 2.8 mmol/L (0.4-2.0) Calcium Level 8.3 mg/dL (8.5-10.1) Phosphorus Level 3.1 mg/dL (2.6-4.7) Magnesium Level 1.8 mg/dL (1.8-2.4) Total Bilirubin 0.7 mg/dL (0.2-1.0) Aspartate Amino Transf (AST/SGOT) 25 U/L (15-37) Alanine Aminotransferase (ALT/SGPT) 21 U/L (14-59) Alkaline Phosphatase 49 U/L (46-116) Troponin I Quantitative 0.080 ng/mL (0.000-0.055) QT-Pel-U-Type Natriuretic Peptide 49976 pg/mL (0-449) Total Protein 5.4 g/dL (6.4-8.2) Albumin 2.8 g/dL (3.4-5.0) Albumin/Globulin Ratio 1.1 (1.0-1.7) Thyroid Stimulating Hormone (TSH) 0.344 uIU/mL (0.358-3.74) Influenza Type A Antigen Negative (NEGATIVE) Influenza Type B Antigen Negative (NEGATIVE) Urine Collection Type Unknown Urine Color Yellow Urine Clarity Clear Urine pH 5.5 (<5.0-8.0) Urine Specific [place] 1.010 (1.000-1.030) Urine Protein Negative mg/dL (NEG-TRACE) Urine Glucose (UA) Negative mg/dL (NEG) Urine Ketones (Stick) Negative mg/dL (NEG) Urine Blood Negative (NEG) Urine Nitrite Negative (NEG) Urine Bilirubin Negative (NEG) Urine Urobilinogen Dipstick 0.2 mg/dL (0.2 mg/dL) Urine Leukocyte Esterase Negative (NEG) Urine RBC 0 /HPF (0-2) Urine WBC 1-4 /HPF (0-4) Urine Squamous Epithelial Cells Mod /LPF Urine Bacteria Many /HPF (0-FEW) Urine Hyaline Casts Few /HPF Laboratory Tests Test 06/05/20 13:03 06/05/20 13:23 06/05/20 14:08 06/05/20 16:55 White Blood Count 10.7 x10^3/uL (4.0-11.0) Red Blood Count 4.28 x10^6/uL (3.50-5.40) Hemoglobin 13.8 g/dL (12.0-15.5) Hematocrit 41.0 % (36.0-47.0) Mean Corpuscular Volume 96 fL (79-100) Mean Corpuscular Hemoglobin 32 pg (25-35) Mean Corpuscular Hemoglobin Concent 34 g/dL (31-37) Red Cell Distribution Width 13.7 % (11.5-14.5) Platelet Count 183 x10^3/uL (140-400) Neutrophils (%) (Auto) 90 % (31-73) Lymphocytes (%) (Auto) 6 % (24-48) Monocytes (%) (Auto) 3 % (0-9) Eosinophils (%) (Auto) 0 % (0-3) Basophils (%) (Auto) 0 % (0-3) Neutrophils # (Auto) 9.6 x10^3/uL (1.8-7.7) Lymphocytes # (Auto) 0.7 x10^3/uL (1.0-4.8) Monocytes # (Auto) 0.3 x10^3/uL (0.0-1.1) Eosinophils # (Auto) 0.0 x10^3/uL (0.0-0.7) Basophils # (Auto) 0.0 x10^3/uL (0.0-0.2) Segmented Neutrophils % 81 % (35-66) Band Neutrophils % 6 % (0-9) Lymphocytes % 10 % (24-48) Monocytes % 3 % (0-10) Platelet Estimate Adequate (ADEQUATE) Poikilocytosis Slight Schistocytes Few Prothrombin Time 18.7 SEC (11.7-14.0) Prothromb Time International Ratio 1.6 (0.8-1.1) Activated Partial Thromboplast Time 36 SEC (24-38) Sodium Level 139 mmol/L (136-145) Potassium Level 4.1 mmol/L (3.5-5.1) Chloride Level 104 mmol/L (98-107) Carbon Dioxide Level 23 mmol/L (21-32) Anion Gap 12 (6-14) Blood Urea Nitrogen 20 mg/dL (7-20) Creatinine 1.3 mg/dL (0.6-1.0) Estimated GFR (Cockcroft-Gault) 38.9 BUN/Creatinine Ratio 15 (6-20) Glucose Level 137 mg/dL (70-99) Lactic Acid Level 3.0 mmol/L (0.4-2.0) 2.8 mmol/L (0.4-2.0) Calcium Level 8.3 mg/dL (8.5-10.1) Phosphorus Level 3.1 mg/dL (2.6-4.7) Magnesium Level 1.8 mg/dL (1.8-2.4) Total Bilirubin 0.7 mg/dL (0.2-1.0) Aspartate Amino Transf (AST/SGOT) 25 U/L (15-37) Alanine Aminotransferase (ALT/SGPT) 21 U/L (14-59) Alkaline Phosphatase 49 U/L (46-116) Troponin I Quantitative 0.080 ng/mL (0.000-0.055) HP-Pad-C-Type Natriuretic Peptide 71292 pg/mL (0-449) Total Protein 5.4 g/dL (6.4-8.2) Albumin 2.8 g/dL (3.4-5.0) Albumin/Globulin Ratio 1.1 (1.0-1.7) Thyroid Stimulating Hormone (TSH) 0.344 uIU/mL (0.358-3.74) Influenza Type A Antigen Negative (NEGATIVE) Influenza Type B Antigen Negative (NEGATIVE) Urine Collection Type Unknown Urine Color Yellow Urine Clarity Clear Urine pH 5.5 (<5.0-8.0) Urine Specific [place] 1.010 (1.000-1.030) Urine Protein Negative mg/dL (NEG-TRACE) Urine Glucose (UA) Negative mg/dL (NEG) Urine Ketones (Stick) Negative mg/dL (NEG) Urine Blood Negative (NEG) Urine Nitrite Negative (NEG) Urine Bilirubin Negative (NEG) Urine Urobilinogen Dipstick 0.2 mg/dL (0.2 mg/dL) Urine Leukocyte Esterase Negative (NEG) Urine RBC 0 /HPF (0-2) Urine WBC 1-4 /HPF (0-4) Urine Squamous Epithelial Cells Mod /LPF Urine Bacteria Many /HPF (0-FEW) Urine Hyaline Casts Few /HPF Medications Active Scripts Medications Dose Route/Sig Max Daily Dose Days Date Category Vitamin A 8,000 Unit Capsule 10,000 Unit PO DAILY 06/06/20 Reported Tramadol Hcl 50 Mg Tablet 50 Mg PO Q4HRS PRN 06/06/20 Reported Prednisone 20 Mg Tablet 1 Tab PO DAILY 06/06/20 Reported Pantoprazole Sodium 40 Mg Tablet.dr 40 Mg PO DAILY 06/06/20 Reported [place] 3 Fish Oil Softgel ([place]-3 Fatty Acids/Fish Oil) 1 Each Capsule.dr 1 Each PO DAILY 06/06/20 Reported Levothyroxine Sodium 75 Mcg Tablet 1 Tab PO DAILY 06/06/20 Reported Ferrous Sulfate 325 Mg Tablet 1 Tab PO DAILY 06/06/20 Reported Estradiol 2 Mg Tablet 1 Tab PO DAILY 06/06/20 Reported Symbicort 80-4.5 Mcg Inhaler (Budesonide/Formoterol Fumarate) 10.2 Gm Hfa.aer.ad 2 Puff IH BID 06/06/20 Reported Atenolol 50 Mg Tablet 1 Tab PO DAILY 06/06/20 Reported Vitamin C (Ascorbic Acid) 500 Mg Capsule.er 1 Cap PO DAILY 30 06/06/20 Reported Alendronate Sodium 70 Mg Tablet 1 Tab PO WEEKLY 06/06/20 Reported Proair Hfa (Albuterol Sulfate) 8.5 Gm Hfa.aer.ad 2 Puff IH PRN Q4-6HRS PRN 21 06/06/20 Reported Eliquis (Apixaban) 5 Mg Tablet 5 Mg PO BID 06/06/20 Reported Impression . 1. 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 At that time, she was subsequently discharged on Eliquis. She now presents with dyspnea, although she is not requiring any supplemental oxygen. Her CT angiogram is concerning for chronic thromboembolic disease with a clot/filling defect adherent to the proximal wall of the right main pulmonary artery. Additional defects were seen with a web-like morphology in the right lower lobe, basal pulmonary artery. There is also occlusion of the anterior segment of the right upper lobe pulmonary artery. She has evidence of pulmonary hypertension as well. She would require workup for hypercoagulable state as her son has DVT at age 48. She has lost 20 pounds in last one month, which could be related to her Graves' disease, but she would need a malignancy workup as well. 2. No significant tobacco history. 3. No prior history of thromboembolic disease. No recent immobilization trauma and no known cancers. 4. Pulmonary hypertension suspected on CTA chest. 5. Recent bilateral DVT at [facility] 6. Epistaxis last night. Plan . 1. Hold Heparin for 24 hrs 2. I have reviewed the report of the CT angiogram and venous Dopplers from [facility]. She had bilateral PE including very large central embolus in the right pulmonary artery.She also had a 2.1 cm cavitary lesion in RML. f/u dopplers today with resolved DVT. No lung mass seen. PE in right pulmonary artery is likely improving. 3. Hold off on IVC filter. Monitor for risk for fall. 4. Obtain echocardiogram to assess for pulmonary hypertension. 5. She will need a repeat CT angiogram in 6-8 weeks to assess for persistent chronic thromboembolic disease. 6. Hypercoagulable panel as an outpatient. 7. CT abdomen and pelvis to rule out any occult malignancy in the abdomen and pelvis./ wt loss 8. d/w IR 9. RE-Start heparin without bolus in 24 hrs ALANA TERESA MD Jun 06, 2020 10:04
[2020-06-06 11:18] LABS: CALCIUM 7.3 mg/dL (8.5-10.1); CREATININE 0.8 mg/dL (0.6-1.0); GFR 68.2
--- NOTE | 2020-06-06 11:22 | NUR ---
NOLAN following for discharge planning. Spoke with RN and reviewed chart. Pt COVID pending. NOLAN attempted to call into pt's room, no answer. NOLAN called and spoke with pt's son Butch and [id number] Bebe ([phone]). NOLAN obtained social hx from family. Pt lives in her own home and her son Carmelo has been staying there. Carmelo works employee communications intern so pt has spent the last 2 weeks with Butch and Bebe in their home. Pt has a daughter Aby ([phone]) who is also involved. Family plans to talk over the holidays about long-term plan for patient. Pt's home has lots of stairs and there is concern about her residing there alone. Pt's granddaughter works at [facility] and family would like SNU referral sent. NOLAN phoned and faxed referral. Patient choice of vendor form completed. Family informed that [facility] does not have a LTC bed available but that pt might be able to go to their SNU on discharge. NOLAN requested PT/OT orders. Pt COVID pending, room air, cardiac diet, IV pain medication. Pt has Medicare. NOLAN following. Addendum: 06/06/20 at 1137 by ILENE FRANCISCO Pt added to possible weekend/holiday discharge list.
[2020-06-06 11:37] VITALS: BP 126/87
--- NOTE | 2020-06-06 11:57 | RAD ---
EXAM: CT Abdomen and Pelvis without IV contrast INDICATION: Reason: wt loss, r/o malignancy / Spl. Instructions: / History: TECHNIQUE: Multi-detector row CT images were acquired from the lung bases through the abdomen and pel vis without the use of IV contrast. Sagittal and coronal images were acquired from the transaxial haylie a. All CT scans performed at this facility utilize dose optimization techniques as appropriate to the exam, including the following: Automated exposure control and adjustment of the mA and/or KV accordi ng to patient size (this includes techniques or standardized protocols for targeted exams where dose is indication/reason for exam). ORAL CONTRAST: None COMPARISON: CT pulmonary angiogram of 06/05/2020 FINDINGS: The absence of IV contrast limits evaluation of soft tissue pathology. LOWER CHEST: Unremarkable LIVER: Unremarkable BILIARY SYSTEM: Gallbladder is unremarkable. Bile ducts are not dilated. PANCREAS: Unremarkable SPLEEN: Unremarkable ADRENALS: Unremarkable KIDNEYS & URETERS: A 3 mm calcified stone at the right ureteropelvic junction is associated with rig ht grade 1 hydronephrosis. Right kidney otherwise unremarkable. Left kidney shows a 2 cm partially ex ophytic low-density lesion in the midpole with density measurements close to water, suggesting a davion l cyst. It does not require additional imaging follow-up. BLADDER: Unremarkable REPRODUCTIVE ORGANS: Hysterectomy. No adnexal mass or pelvic fluid collection is identified. The ova patricia are not seen and may be surgically absent as well. Nonspecific soft tissue fullness along the va ginal canal is noted. GASTROINTESTINAL: There is interposition of large bowel over the right hepatic lobe. No findings of b owel obstruction, perforation or acute inflammation. The appendix is normal. MESENTERY/PERITONEUM/RETROPERITONEUM: Unremarkable VASCULAR: Extensive arterial calcifications are redemonstrated. LYMPH NODES: No adenopathy OSSEOUS & SOFT TISSUES: Bones are demineralized and show grade 1 anterolisthesis of L4 on L5. No fra cture or aggressive appearing osseous lesions are seen. Multilevel degenerative changes are also note d. IMPRESSION: Status post hysterectomy, nonspecific fullness along the vaginal canal (most conspicuously anteriorly ) is recommended for clinical correlation. Otherwise no findings suspicious for malignancy in the abd omen or pelvis on noncontrast CT are identified. Electronically signed by: Pat Johnson MD (06/06/2020 11:55 AM) [id number]
--- NOTE | 2020-06-06 12:13 | PDOC ---
[facility] [facility] PROGRESS NOTE Date of Service DOS: DATE: 06/06/20 TIME: 12:11 Chief Complaint Chief Complaint Acute hypoxic respiratory distress due to pulmonary emboli Failure outpatient treatment Lactic acidosis KAYDEN Vasomotor nephropathy Plan: Admit patient on IV heparin drip Consultation was placed to IR; order CTA abdomen pelvis in the morning; IV normal saline to clear IV contrast Bilateral lower extremity venous Dopplers Consultation with cardiology, EKG concerning for right heart strain and CTA chest showing advanced cardiovascular disease with calcifications of coronary arteries Consultation to pulmonology Consultation to hematology/oncology due to failure of outpatient Eliquis treatment Patient received sepsis fluid bolus IV Levaquin 750 mg x 1 to cover for possible atypical infection FEN - Cardiac diet PPX - Heparin FULL CODE Dispo - inpatient for above History of Present Illness History of Present Illness 06/06/2020 No acute events overnight. Patient is afebrile and saturating 96% on room air. Currently on heparin drip. Pending CT abdomen pelvis. Patient's chart, labs, images were reviewed and discussed with RN 85-year-old female with past medical history PE on Eliquis, who presents to the ER with complaints of shortness of breath since this morning. She reports associated nonproductive cough, weakness, lethargy and nausea. She was recently treated at [facility] for extensive bilateral pulmonary embolism and DVT in the right lower extremity. She was started on Eliquis with plan to place IVC filter, but this was unable to be performed due to the extent of her clot up to her IVC. She denies any prior history of DVT or PE, and states she has been compliant with her Eliquis. Of note she was receiving physical therapy at home, and her therapist tested positive for COVID-19. Patient and family were tested with negative results. CTA on admission compatible with evolving pulmonary em boli such as in the anterior basal right lower lobe. EKG is concerning for right heart strain. Will admit patient for further medical management. Vitals/I&O Vitals/I&O: Vital Signs Date Time Temp Pulse Resp B/P (MAP) Pulse Ox O2 Delivery O2 Flow Rate FiO2 06/06/20 11:37 99.3 77 20 126/87 (100) 94 Room Air 99.3 I & O 06/05/20 06/05/20 06/06/20 15:00 23:00 07:00 Intake Total 1000 ml 1000 ml Balance 1000 ml 1000 ml Physical Exam Lungs: Clear Labs Labs: Laboratory Tests Test 06/05/20 13:03 06/05/20 13:23 06/05/20 14:08 06/05/20 16:55 White Blood Count 10.7 x10^3/uL (4.0-11.0) Red Blood Count 4.28 x10^6/uL (3.50-5.40) Hemoglobin 13.8 g/dL (12.0-15.5) Hematocrit 41.0 % (36.0-47.0) Mean Corpuscular Volume 96 fL (79-100) Mean Corpuscular Hemoglobin 32 pg (25-35) Mean Corpuscular Hemoglobin Concent 34 g/dL (31-37) Red Cell Distribution Width 13.7 % (11.5-14.5) Platelet Count 183 x10^3/uL (140-400) Neutrophils (%) (Auto) 90 % (31-73) Lymphocytes (%) (Auto) 6 % (24-48) Monocytes (%) (Auto) 3 % (0-9) Eosinophils (%) (Auto) 0 % (0-3) Basophils (%) (Auto) 0 % (0-3) Neutrophils # (Auto) 9.6 x10^3/uL (1.8-7.7) Lymphocytes # (Auto) 0.7 x10^3/uL (1.0-4.8) Monocytes # (Auto) 0.3 x10^3/uL (0.0-1.1) Eosinophils # (Auto) 0.0 x10^3/uL (0.0-0.7) Basophils # (Auto) 0.0 x10^3/uL (0.0-0.2) Segmented Neutrophils % 81 % (35-66) Band Neutrophils % 6 % (0-9) Lymphocytes % 10 % (24-48) Monocytes % 3 % (0-10) Platelet Estimate Adequate (ADEQUATE) Poikilocytosis Slight Schistocytes Few Prothrombin Time 18.7 SEC (11.7-14.0) Prothromb Time International Ratio 1.6 (0.8-1.1) Activated Partial Thromboplast Time 36 SEC (24-38) Sodium Level 139 mmol/L (136-145) Potassium Level 4.1 mmol/L (3.5-5.1) Chloride Level 104 mmol/L (98-107) Carbon Dioxide Level 23 mmol/L (21-32) Anion Gap 12 (6-14) Blood Urea Nitrogen 20 mg/dL (7-20) Creatinine 1.3 mg/dL (0.6-1.0) Estimated GFR (Cockcroft-Gault) 38.9 BUN/Creatinine Ratio 15 (6-20) Glucose Level 137 mg/dL (70-99) Lactic Acid Level 3.0 mmol/L (0.4-2.0) 2.8 mmol/L (0.4-2.0) Calcium Level 8.3 mg/dL (8.5-10.1) Phosphorus Level 3.1 mg/dL (2.6-4.7) Magnesium Level 1.8 mg/dL (1.8-2.4) Total Bilirubin 0.7 mg/dL (0.2-1.0) Aspartate Amino Transf (AST/SGOT) 25 U/L (15-37) Alanine Aminotransferase (ALT/SGPT) 21 U/L (14-59) Alkaline Phosphatase 49 U/L (46-116) Troponin I Quantitative 0.080 ng/mL (0.000-0.055) JI-Yrf-M-Type Natriuretic Peptide 13610 pg/mL (0-449) Total Protein 5.4 g/dL (6.4-8.2) Albumin 2.8 g/dL (3.4-5.0) Albumin/Globulin Ratio 1.1 (1.0-1.7) Thyroid Stimulating Hormone (TSH) 0.344 uIU/mL (0.358-3.74) Influenza Type A Antigen Negative (NEGATIVE) Influenza Type B Antigen Negative (NEGATIVE) Urine Collection Type Unknown Urine Color Yellow Urine Clarity Clear Urine pH 5.5 (<5.0-8.0) Urine Specific [place] 1.010 (1.000-1.030) Urine Protein Negative mg/dL (NEG-TRACE) Urine Glucose (UA) Negative mg/dL (NEG) Urine Ketones (Stick) Negative mg/dL (NEG) Urine Blood Negative (NEG) Urine Nitrite Negative (NEG) Urine Bilirubin Negative (NEG) Urine Urobilinogen Dipstick 0.2 mg/dL (0.2 mg/dL) Urine Leukocyte Esterase Negative (NEG) Urine RBC 0 /HPF (0-2) Urine WBC 1-4 /HPF (0-4) Urine Squamous Epithelial Cells Mod /LPF Urine Bacteria Many /HPF (0-FEW) Urine Hyaline Casts Few /HPF Test 06/06/20 09:48 Sodium Level 140 mmol/L (136-145) Potassium Level 4.0 mmol/L (3.5-5.1) Chloride Level 105 mmol/L (98-107) Carbon Dioxide Level 27 mmol/L (21-32) Anion Gap 8 (6-14) Blood Urea Nitrogen 21 mg/dL (7-20) Creatinine 0.8 mg/dL (0.6-1.0) Estimated GFR (Cockcroft-Gault) 68.2 Glucose Level 68 mg/dL (70-99) Calcium Level 7.3 mg/dL (8.5-10.1) Procalcitonin < 0.10 ng/mL (0.00-0.10) Comment Review of Relevant I have reviewed the following items mary (where applicable) has been applied. Medications: Current Medications Medications (Trade) Dose Ordered Sig/Danielle Route PRN Reason Start Time Stop Time Status Last Admin Dose Admin Sodium Chloride 1,000 ml @ 1,000 mls/hr 1X ONCE IV 06/05/20 13:00 06/05/20 13:59 DC 06/05/20 13:10 Sodium Chloride 1,000 ml @ 1,000 mls/hr 1X ONCE IV 06/05/20 13:45 06/05/20 14:44 DC 06/05/20 14:50 Iohexol (Omnipaque 350 Mg/ml) 75 ml 1X ONCE IV 06/05/20 14:00 06/05/20 14:01 DC 06/05/20 14:02 Heparin Sodium (Porcine) (Heparin Sodium) 4,350 unit 1X ONCE IV 06/05/20 14:30 06/05/20 23:41 DC 06/05/20 14:53 Heparin Sodium/ Dextrose 250 ml @ 8.72 mls/hr CONT PRN IV PER PROTOCOL 06/05/20 14:30 06/05/20 23:41 DC 06/05/20 14:56 Sodium Chloride 1,000 ml @ 75 mls/hr [id number] IV 06/05/20 16:00 06/05/20 23:46 Tramadol HCl (Ultram) 50 mg PRN Q6HRS PRN PO PAIN 06/05/20 16:00 06/05/20 23:47 Levofloxacin/ Dextrose 150 ml @ 100 mls/hr 1X ONCE IV 06/05/20 16:00 06/05/20 17:29 DC 06/05/20 23:46 Justifications for Admission Other Justification PE, failed outpatient treatment REX SHIRLEY MD Jun 06, 2020 12:13
--- NOTE | 2020-06-06 12:23 | PDOC2 ---
CINTHIA LÓPEZ MANAGER STYLE 06/06/20 1223: CARDIAC CONSULT DATE OF CONSULT Date of Consult DATE: 06/06/20 TIME: 12:03 REASON FOR CONSULT Reason for Consult: Elevated troponin, CHF REFERRING PHYSICIAN Referring Physician: Anupama SOURCE Source: Chart review, Patient HISTORY OF PRESENT ILLNESS HISTORY OF PRESENT ILLNESS This is a pleasant 85 yo female admitted for complains of shortness of breath and dizziness. Reports no chest pain, nausea vomiting but has been having diarrhea in the last 2 days but none today. Positive for ageusia and anosmia. She was just at [facility] recently and was recently discharged treated over there for extensive LE DVT and PE. Reportedly tested for covid-19 but neg at that time. Reports no hx of VTE, CAD, CVA or any arrhythmias. 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 She was discharged with eliquis and was actually being considered for IVC filter but her thrombus was very significant at the IVC level that this could not be done. Again she denies any chest pain and currently no leg swelling. Denies any syncope. No hx fo CA and no VTE but has been taking estradiol for osteoporosis and was just recently discontinued. PAST MEDICAL HISTORY Cardiovascular: HTN, Hyperlipidemia Pulmonary: Asthma, Pulmonary embolus, Pneumonia CENTRAL NERVOUS SYSTEM: Other (No pertinent history) Heme/Onc: No pertinent hx, Other (DVT) Hepatobiliary: Cholelithiasis Psych: No pertinent hx Musculoskeletal: Osteoarthritis Rheumatologic: No pertinent hx Infectious disease: No pertinent hx ENT: Allergic Rhinitis Renal/: No pertinent hx, UTI Endocrine: Hypothyroidism, Osteoporosis Dermatology: No pertinent hx PAST SURGICAL HISTORY Past Surgical History Appendectomy, cholecystectomy, hysterectomy, shoulder surgery FAMILY HISTORY Family History: Other (son had LE dvt IN HIS 40S) SOCIAL HISTORY Smoke: Quit (REMOTELY) ALCOHOL: occassional Drugs: None Lives: with Family CURRENT MEDICATIONS CURRENT MEDICATIONS Current Medications Medications (Trade) Dose Ordered Sig/Danielle Route PRN Reason Start Time Stop Time Status Last Admin Dose Admin Sodium Chloride 1,000 ml @ 1,000 mls/hr 1X ONCE IV 06/05/20 13:00 06/05/20 13:59 DC 06/05/20 13:10 Sodium Chloride 1,000 ml @ 1,000 mls/hr 1X ONCE IV 06/05/20 13:45 06/05/20 14:44 DC 06/05/20 14:50 Iohexol (Omnipaque 350 Mg/ml) 75 ml 1X ONCE IV 06/05/20 14:00 06/05/20 14:01 DC 06/05/20 14:02 Heparin Sodium (Porcine) (Heparin Sodium) 4,350 unit 1X ONCE IV 06/05/20 14:30 06/05/20 23:41 DC 06/05/20 14:53 Heparin Sodium/ Dextrose 250 ml @ 8.72 mls/hr CONT PRN IV PER PROTOCOL 06/05/20 14:30 06/05/20 23:41 DC 06/05/20 14:56 Sodium Chloride 1,000 ml @ 75 mls/hr [id number] IV 06/05/20 16:00 06/05/20 23:46 Tramadol HCl (Ultram) 50 mg PRN Q6HRS PRN PO PAIN 06/05/20 16:00 06/05/20 23:47 Levofloxacin/ Dextrose 150 ml @ 100 mls/hr 1X ONCE IV 06/05/20 16:00 06/05/20 17:29 DC 06/05/20 23:46 ALLERGIES ALLERGIES: Coded Allergies: Penicillins (Verified Allergy, Unknown, UNKNOWN, 06/05/20) ROS Review of System 14 point ROS evaluated with pertinent positives noted per HPI PHYSICAL EXAM General: Alert, Oriented X3, Cooperative, No acute distress HEENT: Atraumatic, Mucous membr. moist/pink Lungs: Other (diffuse crackles) Heart: Regular rate (SR), Other (distant heart sounds) Abdomen: Soft, No tenderness Extremities: No cyanosis, No edema Skin: No breakdown, No significant lesion Neuro: Normal speech, Sensation intact Psych/Mental Status: Mental status NL, Mood NL MUSCULOSKELETAL: Osteoarthritic changes both hands VITALS/I&O VITALS/I&O: Vital Signs Date Time Temp Pulse Resp B/P (MAP) Pulse Ox O2 Delivery O2 Flow Rate FiO2 06/06/20 11:37 99.3 77 20 126/87 (100) 94 Room Air 99.3 I & O 06/05/20 06/05/20 06/06/20 15:00 23:00 07:00 Intake Total 1000 ml 1000 ml Balance 1000 ml 1000 ml LABS Lab: Laboratory Tests Test 06/05/20 13:03 06/05/20 13:23 06/05/20 14:08 06/05/20 16:55 White Blood Count 10.7 x10^3/uL (4.0-11.0) Red Blood Count 4.28 x10^6/uL (3.50-5.40) Hemoglobin 13.8 g/dL (12.0-15.5) Hematocrit 41.0 % (36.0-47.0) Mean Corpuscular Volume 96 fL (79-100) Mean Corpuscular Hemoglobin 32 pg (25-35) Mean Corpuscular Hemoglobin Concent 34 g/dL (31-37) Red Cell Distribution Width 13.7 % (11.5-14.5) Platelet Count 183 x10^3/uL (140-400) Neutrophils (%) (Auto) 90 % (31-73) H Lymphocytes (%) (Auto) 6 % (24-48) L Monocytes (%) (Auto) 3 % (0-9) Eosinophils (%) (Auto) 0 % (0-3) Basophils (%) (Auto) 0 % (0-3) Neutrophils # (Auto) 9.6 x10^3/uL (1.8-7.7) H Lymphocytes # (Auto) 0.7 x10^3/uL (1.0-4.8) L Monocytes # (Auto) 0.3 x10^3/uL (0.0-1.1) Eosinophils # (Auto) 0.0 x10^3/uL (0.0-0.7) Basophils # (Auto) 0.0 x10^3/uL (0.0-0.2) Segmented Neutrophils % 81 % (35-66) H Band Neutrophils % 6 % (0-9) Lymphocytes % 10 % (24-48) L Monocytes % 3 % (0-10) Platelet Estimate Adequate (ADEQUATE) Poikilocytosis Slight Schistocytes Few Prothrombin Time 18.7 SEC (11.7-14.0) H Prothrombin Time INR 1.6 (0.8-1.1) H Activated Partial Thromboplast Time 36 SEC (24-38) Sodium Level 139 mmol/L (136-145) Potassium Level 4.1 mmol/L (3.5-5.1) Chloride Level 104 mmol/L (98-107) Carbon Dioxide Level 23 mmol/L (21-32) Anion Gap 12 (6-14) Blood Urea Nitrogen 20 mg/dL (7-20) Creatinine 1.3 mg/dL (0.6-1.0) H Estimated GFR (Cockcroft-Gault) 38.9 BUN/Creatinine Ratio 15 (6-20) Glucose Level 137 mg/dL (70-99) H Lactic Acid Level 3.0 mmol/L (0.4-2.0) H 2.8 mmol/L (0.4-2.0) H Calcium Level 8.3 mg/dL (8.5-10.1) L Phosphorus Level 3.1 mg/dL (2.6-4.7) Magnesium Level 1.8 mg/dL (1.8-2.4) Total Bilirubin 0.7 mg/dL (0.2-1.0) Aspartate Amino Transferase (AST) 25 U/L (15-37) Alanine Aminotransferase (ALT) 21 U/L (14-59) Alkaline Phosphatase 49 U/L (46-116) Troponin I Quantitative 0.080 ng/mL (0.000-0.055) OX-Amb-Y-Type Natriuretic Peptide 44715 pg/mL (0-449) H Total Protein 5.4 g/dL (6.4-8.2) L Albumin 2.8 g/dL (3.4-5.0) L Albumin/Globulin Ratio 1.1 (1.0-1.7) Thyroid Stimulating Hormone (TSH) 0.344 uIU/mL (0.358-3.74) L Influenza Type A Antigen Negative (NEGATIVE) Influenza Type B Antigen Negative (NEGATIVE) Urine Collection Type Unknown Urine Color Yellow Urine Clarity Clear Urine pH 5.5 (<5.0-8.0) Urine Specific Viper 1.010 (1.000-1.030) Urine Protein Negative mg/dL (NEG-TRACE) Urine Glucose (UA) Negative mg/dL (NEG) Urine Ketones (Stick) Negative mg/dL (NEG) Urine Blood Negative (NEG) Urine Nitrite Negative (NEG) Urine Bilirubin Negative (NEG) Urine Urobilinogen Dipstick 0.2 mg/dL (0.2 mg/dL) Urine Leukocyte Esterase Negative (NEG) Urine RBC 0 /HPF (0-2) Urine WBC 1-4 /HPF (0-4) Urine Squamous Epithelial Cells Mod /LPF Urine Bacteria Many /HPF (0-FEW) Urine Hyaline Casts Few /HPF Test 06/06/20 09:48 Sodium Level 140 mmol/L (136-145) Potassium Level 4.0 mmol/L (3.5-5.1) Chloride Level 105 mmol/L (98-107) Carbon Dioxide Level 27 mmol/L (21-32) Anion Gap 8 (6-14) Blood Urea Nitrogen 21 mg/dL (7-20) H Creatinine 0.8 mg/dL (0.6-1.0) Estimated GFR (Cockcroft-Gault) 68.2 Glucose Level 68 mg/dL (70-99) L Calcium Level 7.3 mg/dL (8.5-10.1) L Procalcitonin < 0.10 ng/mL (0.00-0.10) Laboratory Tests 06/05/20 13:03 Laboratory Tests 06/05/20 13:03 06/06/20 09:48 ASSESSMENT/PLAN ASSESSMENT/PLAN 1. Dyspnea: due to PE recently treated with eliquis and possibly COvid-19 2. PUI- Suspected Covid-19: + for diarrhea, ageusia,anosmia 3. PE: chronic description per CTA 4. Mild troponin elevation: Trop at 0.08 possibly from RV ischemic due to PE. No CP and no significant EKG changes 5. Acute CHF with probable diastolic dysfunction: appears compensated 6. DVT: culprit would include possible covid-19 and also estradiol treatment which was just recently discontinued 7. HTN: on home atenolol 8. CAD: incidental finding noted via CTA 9. Hypothyroidism 10. HLP 11. Recent HRT with estradiol 12. Mild KAYDEN Recommendations 1. Anticoagulation per pulmonary 2. Completely discontinue estradiol 3. Continue home atenolol. Start on baby ASA. lipids and start on statin per level 4. Repeat troponin and will consider TTE if negative for covid 5. Supportive care for now. 6. Will need outpt ischemic workup. CHARLEY FIERRO MD 06/06/20 4044: CARDIAC CONSULT ASSESSMENT/PLAN ASSESSMENT/PLAN Patient seen and examined. Agree with SILK SCREEN PRINTING RACKER's assessment and plan. Continue anticoagulation for PE per pulmonary team. Slight troponin elevation probably demand ischemia. Acute on chronic diastolic heart failure better compensated. Check 2D echocardiogram if Covid negative and plan outpatient ischemic evaluation. Thank you for your consultation. CINTHIA LÓPEZ APRN Jun 06, 2020 12:23 CHARLEY FIERRO MD Jun 06, 2020 13:57
[2020-06-06 12:33] LABS: CHOLESTEROL/HDL RATIO 3.2
[2020-06-06] MEDS: IV NORMAL SALINE 1000ML BAG 1,000 ML IV SCH ×2 (14:10→21:01)
[2020-06-06] MEDS: ASPIRIN ENTERIC COATED 81 MG TABLET.DR. PO SCH (14:11)
[2020-06-06 15:19] VITALS: BP 150/79
[2020-06-06 19:00] VITALS: BP 127/69
[2020-06-06] MEDS: traMADol 50 MG TABLET PO PRN (21:02)
[2020-06-06 23:05] VITALS: BP 134/65
[2020-06-07 03:04] VITALS: BP 130/74
[2020-06-07 05:40] LABS: HEMATOCRIT 37.2 % (36.0-47.0); HEMOGLOBIN 12.8 g/dL (12.0-15.5); RED BLOOD COUNT 3.96 x10^6/uL (3.50-5.40); RED CELL DISTRIBUTION WIDTH 13.3 % (11.5-14.5); WHITE BLOOD COUNT 8.4 x10^3/uL (4.0-11.0)
[2020-06-07 07:59] VITALS: BP 163/76
--- NOTE | 2020-06-07 08:07 | NUR ---
heparin drip to restart w/ no bolus. verbal orders from Dr. Wyatt.
[2020-06-07] MEDS ORDERED: HEPARIN for IV BOLUS 10,000 UNIT/10 ML VIAL. IV PRN ×5 (08:30→19:45)
[2020-06-07] MEDS ORDERED: HEPARIN 25,000UTS/250ML PREMIX 250 ML IV PRN ×2 (08:30→19:45)
[2020-06-07] MEDS: ASPIRIN ENTERIC COATED 81 MG TABLET.DR. PO SCH (08:39)
[2020-06-07] MEDS: IV NORMAL SALINE 1000ML BAG 1,000 ML IV SCH ×3 (08:51→23:00)
[2020-06-07 11:59] VITALS: BP 158/74
--- NOTE | 2020-06-07 13:35 | PDOC ---
[employer] PROGRESS NOTE Date of Service DOS: DATE: 06/07/20 TIME: 13:31 Chief Complaint Chief Complaint Acute hypoxic respiratory distress due to pulmonary emboli and COVID-19 infection COVID-19 positive Failure outpatient treatment Lactic acidosis KAYDEN Vasomotor nephropathy Plan: Admit patient on IV heparin drip Consultation was placed to IR; order CTA abdomen pelvis in the morning; IV normal saline to clear IV contrast Bilateral lower extremity venous Dopplers Consultation with cardiology, EKG concerning for right heart strain and CTA chest showing advanced cardiovascular disease with calcifications of coronary arteries Consultation to pulmonology Consultation to hematology/oncology due to failure of outpatient Eliquis treatment Patient received sepsis fluid bolus IV Levaquin 750 mg x 1 to cover for possible atypical infection FEN - Cardiac diet PPX - Heparin FULL CODE Dispo - inpatient for above History of Present Illness History of Present Illness 06/07/2020 No acute events overnight. Patient is currently saturating well on room air at 95%. Heparin drip was restarted today. Will discuss with hematology to weigh in their opinions for restarting another anticoagulant upon discharge. All imaging studies negative for any malignancy. Patient's chart, labs, images were reviewed and discussed with RN 06/06/2020 No acute events overnight. Patient is afebrile and saturating 96% on room air. Currently on heparin drip. Pending CT abdomen pelvis. Patient's chart, labs, images were reviewed and discussed with RN 85-year-old female with past medical history PE on Eliquis, who presents to the ER with complaints of shortness of breath since this morning. She reports associated nonproductive cough, weakness, lethargy and nausea. She was recently treated at [facility] for extensive bilateral pulmonary embolism and DVT in the right lower extremity. She was started on Eliquis with plan to place IVC filter, but this was unable to be performed due to the extent of her clot up to her IVC. She denies any prior history of DVT or PE, and states she has been compliant with her Eliquis. Of note she was receiving physical therapy at home, and her therapist tested positive for COVID-19. Patient and family were tested with negative results. CTA on admission compatible with evolving pulmonary emboli such as in the anterior basal right lower lobe. EKG is concerning for right heart strain. Will admit patient for further medical management. Vitals/I&O Vitals/I&O: Vital Signs Date Time Temp Pulse Resp B/P (MAP) Pulse Ox O2 Delivery O2 Flow Rate FiO2 06/07/20 11:59 97.7 83 22 158/74 (102) 93 Room Air 97.7 I & O 06/06/20 06/06/20 06/07/20 15:00 23:00 07:00 Intake Total 1320 ml 200 ml 120 ml Output Total 100 ml Balance 1320 ml 100 ml 120 ml Physical Exam General: Alert, Oriented X3, Cooperative, No acute distress Heart: Regular rate (SR), Other (distant heart sounds) Lungs: Clear Abdomen: Soft, No tenderness Extremities: No cyanosis, No edema Skin: No breakdown, No significant lesion Labs Labs: Laboratory Tests Test 06/07/20 04:38 White Blood Count 8.4 x10^3/uL (4.0-11.0) Red Blood Count 3.96 x10^6/uL (3.50-5.40) Hemoglobin 12.8 g/dL (12.0-15.5) Hematocrit 37.2 % (36.0-47.0) Mean Corpuscular Volume 94 fL (79-100) Mean Corpuscular Hemoglobin 32 pg (25-35) Mean Corpuscular Hemoglobin Concent 34 g/dL (31-37) Red Cell Distribution Width 13.3 % (11.5-14.5) Platelet Count 151 x10^3/uL (140-400) Comment Review of Relevant I have reviewed the following items mary (where applicable) has been applied. Medications: Current Medications Medications (Trade) Dose Ordered Sig/Danielle Route PRN Reason Start Time Stop Time Status Last Admin Dose Admin Aspirin (Ecotrin) 81 mg [id number] PO 06/06/20 14:30 06/07/20 08:39 Heparin Sodium/ Dextrose 250 ml @ 0 mls/hr CONT PRN IV PER PROTOCOL 06/07/20 08:30 06/07/20 08:42 Justifications for Admission Other Justification PE, failed outpatient treatment REX SHIRLEY MD Jun 07, 2020 13:35
--- NOTE | 2020-06-07 14:34 | PDOC ---
PROGRESS NOTES Date of Service: DATE: 06/07/20 TIME: 14:30 Subjective Subjective No new complaints. Patient saturating well on room air. Objective Objective Vital Signs Date Time Temp Pulse Resp B/P (MAP) Pulse Ox O2 Delivery O2 Flow Rate FiO2 06/07/20 11:59 97.7 83 22 158/74 (102) 93 Room Air 97.7 Intake and Output 06/07/20 07:00 Intake Total 1640 ml Output Total 100 ml Balance 1540 ml Intake Oral 640 ml IV Total 1000 ml Output Urine Total 100 ml # Voids 108 Physical Exam Abdomen: Soft, No tenderness Heart: Regular rate (SR), Other (distant heart sounds) Extremities: No cyanosis, No edema General: Alert, Oriented X3, Cooperative, No acute distress HEENT: Atraumatic, Mucous membr. moist/pink Lungs: Other (diffuse crackles) Neuro: Normal speech, Sensation intact Psych/Mental Status: Mental status NL, Mood NL Skin: No breakdown, No significant lesion Assessment Assessment 1. Acute hypoxic respiratory failure secondary to pulmonary embolus and Covid pneumonia. Continue current management per pulmonary team. 2. Mild troponin elevation: Trop at 0.08 possibly from RV strain from PE. No CP and no significant EKG changes. We will consider 2D echo and ischemic evaluation once recovered from Covid. 3. Acute on chronic diastolic heart failure, better compensated 4. HTN: Controlled 5. CAD: incidental finding noted via CTA, patient presently chest pain-free. Plan outpatient MPI. 6. Hypothyroidism, continue levothyroxine 7. Mild KAYDEN, treat per IM Comment Review of Relevant I have reviewed the following items mary (where applicable) has been applied. Labs Laboratory Tests Test 06/07/20 04:38 White Blood Count 8.4 x10^3/uL (4.0-11.0) Red Blood Count 3.96 x10^6/uL (3.50-5.40) Hemoglobin 12.8 g/dL (12.0-15.5) Hematocrit 37.2 % (36.0-47.0) Mean Corpuscular Volume 94 fL (79-100) Mean Corpuscular Hemoglobin 32 pg (25-35) Mean Corpuscular Hemoglobin Concent 34 g/dL (31-37) Red Cell Distribution Width 13.3 % (11.5-14.5) Platelet Count 151 x10^3/uL (140-400) Microbiology 06/05/20 Urine Culture - Preliminary, Resulted Medications Current Medications Heparin Sodium (Porcine) (Heparin Sodium) 850 unit PRN Q6HRS PRN IV FOR UFH LEVEL 0.2 - 0.29; Start 06/07/20 at 08:30 Heparin Sodium (Porcine) (Heparin Sodium) 1,700 unit PRN Q6HRS PRN IV FOR UFH LEVEL LESS THAN 0.2; Start 06/07/20 at 08:30 Heparin Sodium/ Dextrose 250 ml @ 0 mls/hr CONT PRN IV PER PROTOCOL Last administered on 06/07/20at 08:42; Start 06/07/20 at 08:30 Vitals/I & O Vital Sign - Last 24 Hours 06/06/20 06/06/20 06/06/20 06/06/20 15:19 19:00 20:10 23:05 Temp 98.1 97.9 98.3 98.1 97.9 98.3 Pulse 73 77 85 Resp 20 26 28 B/P (MAP) 150/79 (102) 127/69 (88) 134/65 (88) Pulse Ox 94 96 96 O2 Delivery Room Air Room Air Room Air Room Air 06/07/20 06/07/20 06/07/20 06/07/20 03:04 07:59 08:00 11:59 Temp 96.6 97.9 97.7 96.6 97.9 97.7 Pulse 84 85 83 Resp 26 22 22 B/P (MAP) 130/74 (92) 163/76 (105) 158/74 (102) Pulse Ox 96 95 93 O2 Delivery Room Air Room Air Room Air Room Air Intake and Output 06/06/20 06/06/20 06/07/20 15:00 23:00 07:00 Intake Total 1320 ml 200 ml 120 ml Output Total 100 ml Balance 1320 ml 100 ml 120 ml CHARLEY FIERRO MD Jun 07, 2020 14:34
[2020-06-07 15:59] VITALS: BP 134/72
[2020-06-07 19:00] VITALS: BP 106/65
--- NOTE | 2020-06-07 21:15 | NUR ---
NURSING NOTE Pts daughter, Laura, called to check on pt and get an update. Laura is concerned about the pt being on a heparin drip after having attempted this already with nose bleeds as a result, and wants to know why the patient can't just continue taking her Eliquis 5mg as she was prior to admission. Informed Laura that would be a question for the physician, as there are not clear notes as to the reasoning. Laura also wants it to be noted that she would like a call from the Hospitalist tomorrow after rounding on her mother so she can have an update. Also, Laura wants it to be known that the patient is not to have any procedures, namely an IVC filter placement without first doing a conference call between the patient, the physician and herself, so that a decision can be made after getting all the needed information.
[2020-06-07 23:00] VITALS: BP 134/96
[2020-06-08 03:00] VITALS: BP 144/95
[2020-06-08 07:59] VITALS: BP 120/71
--- NOTE | 2020-06-08 09:13 | PDOC2 ---
CONSULT Date of Consult Date of Consult DATE: 06/08/20 TIME: 09:01 History of Present Illness Reason for Visit: Sulma Alaniz is an 85-year-old female who was recently admitted at [facility] for lower extremity DVT and PE. Patient had no prior history of the same. She reported no antecedent history of change in activity, surgery, air travel, estrogen-based hormone replacement therapy, car travel. She was discharged home on Eliquis. Due to persistent shortness of breath, she resented to [facility] seeking further evaluation. She received repeat CT chest which showed chronic pulmonary emboli and findings suggestive of pulmonary infarct from recent massive PE. Ultrasound Doppler was obtained of the lower extremities and did not show DVT. Placement of IVC filter is being considered. She has been seen by Dr. Wyatt who had recommended continuing anticoagulation. Hematology consultation has been sought due to the patient's history of massive PE. Patient has an associated family history of PE in her son who was diagnosed at an age less than 50. During her current hospital stay, she was also tested positive for COVID-19 and is being provided supportive care for it. Past Medical History Cardiovascular: HTN, Hyperlipidemia Pulmonary: Asthma, Pulmonary embolus, Pneumonia CENTRAL NERVOUS SYSTEM: Other (No pertinent history) Heme/Onc: No pertinent hx, Other (DVT) Hepatobiliary: Cholelithiasis Psych: No pertinent hx Musculoskeletal: Osteoarthritis Rheumatologic: No pertinent hx Infectious disease: No pertinent hx ENT: Allergic Rhinitis Renal/: No pertinent hx, UTI Endocrine: Hypothyroidism, Osteoporosis Dermatology: No pertinent hx Family History Family History: Other (son had LE dvt IN HIS 40S) Social History Quit (REMOTELY) ALCOHOL: occassional Drugs: None Lives: with Family Current Medications Current Medications Current Medications Sodium Chloride 1,000 ml @ 1,000 mls/hr 1X ONCE IV Last administered on 06/05/20at 13:10; Start 06/05/20 at 13:00; Stop 06/05/20 at 13:59; Status DC Sodium Chloride 1,000 ml @ 1,000 mls/hr 1X ONCE IV Last administered on 06/05/20at 14:50; Start 06/05/20 at 13:45; Stop 06/05/20 at 14:44; Status DC Iohexol (Omnipaque 350 Mg/ml) 75 ml 1X ONCE IV Last administered on 06/05/20at 14:02; Start 06/05/20 at 14:00; Stop 06/05/20 at 14:01; Status DC Info (CONTRAST GIVEN -- Rx MONITORING) 1 each PRN DAILY PRN MC SEE COMMENTS; Start 06/05/20 at 14:00; Stop 06/07/20 at 13:59; Status DC Heparin Sodium (Porcine) (Heparin Sodium) 4,350 unit 1X ONCE IV Last administered on 06/05/20at 14:53; Start 06/05/20 at 14:30; Stop 06/05/20 at 23:41; Status DC Heparin Sodium/ Dextrose 250 ml @ 8.72 mls/hr CONT PRN IV PER PROTOCOL Last administered on 06/05/20at 14:56; Start 06/05/20 at 14:30; Stop 06/05/20 at 23:41; Status DC Heparin Sodium (Porcine) (Heparin Sodium) 1,650 unit PRN Q6HRS PRN IV FOR UFH LEVEL LESS THAN 0.2; Start 06/05/20 at 14:30; Stop 06/05/20 at 23:41; Status DC Heparin Sodium (Porcine) (Heparin Sodium) 800 unit PRN Q6HRS PRN IV FOR UFH LEVEL 0.2 - 0.29; Start 06/05/20 at 14:30; Stop 06/05/20 at 23:41; Status DC Ondansetron HCl (Zofran) 4 mg PRN Q6HRS PRN IVP NAUSEA/VOMITING; Start 06/05/20 at 15:45 Al Hydroxide/Mg Hydroxide (Mylanta Plus Xs) 30 ml PRN Q3HRS PRN PO HEARTBURN / GAS; Start 06/05/20 at 15:45 Calcium Carbonate/ Glycine (Tums) 500 mg PRN Q3HRS PRN PO UPSET STOMACH; Start 06/05/20 at 15:45 Zolpidem Tartrate (Ambien) 5 mg PRN QHS PRN PO INSOMNIA, MAY REPEAT IN 1HR; Start 06/05/20 at 15:45 Morphine Sulfate (Morphine Sulfate) 2 mg PRN Q1HR PRN IV PAIN; Start 06/05/20 at 15:45 Acetaminophen (Tylenol) 650 mg PRN Q6HRS PRN PO Headaches, Temp > 101.5F; Start 06/05/20 at 15:45 Magnesium Hydroxide (Milk Of Magnesia) 2,400 mg PRN Q12HR PRN PO CONSTIPATION; Start 06/05/20 at 15:45 Bisacodyl (Dulcolax Supp) 10 mg PRN DAILY PRN [place] CONSTIPATION; Start 06/05/20 at 15:45 Sodium Chloride 1,000 ml @ 75 mls/hr [id number] IV Last administered on 06/07/20at 23:00; Start 06/05/20 at 16:00 Tramadol HCl (Ultram) 50 mg PRN Q6HRS PRN PO PAIN Last administered on 06/05/20at 23:47; Start 06/05/20 at 16:00 Levofloxacin/ Dextrose 150 ml @ 100 mls/hr 1X ONCE IV Last administered on 06/05/20at 23:46; Start 06/05/20 at 16:00; Stop 06/05/20 at 17:29; Status DC Aspirin (Ecotrin) 81 mg [id number] PO Last administered on 06/07/20at 08:39; Start 06/06/20 at 14:30 Heparin Sodium/ Dextrose 250 ml @ 0 mls/hr CONT PRN IV PER PROTOCOL Last administered on 06/07/20at 08:42; Start 06/07/20 at 08:30; Stop 06/07/20 at 19:45; Status DC Heparin Sodium (Porcine) (Heparin Sodium) 1,700 unit PRN Q6HRS PRN IV FOR UFH LEVEL LESS THAN 0.2; Start 06/07/20 at 08:30; Stop 06/07/20 at 19:45; Status DC Heparin Sodium (Porcine) (Heparin Sodium) 850 unit PRN Q6HRS PRN IV FOR UFH LEVEL 0.2 - 0.29; Start 06/07/20 at 08:30; Stop 06/07/20 at 19:45; Status DC Heparin Sodium/ Dextrose 250 ml @ 0 mls/hr CONT PRN IV PER PROTOCOL Last administered on 06/07/20at 21:05; Start 06/07/20 at 19:45 Heparin Sodium (Porcine) (Heparin Sodium) 1,700 unit PRN Q6HRS PRN IV FOR PTT < 40; Start 06/07/20 at 19:45 Heparin Sodium (Porcine) (Heparin Sodium) 2,000 unit PRN Q6HRS PRN IV FOR PTT 40 - 58; Start 06/07/20 at 19:45 Heparin Sodium (Porcine) (Heparin Sodium) 1,000 unit PRN Q6HRS PRN IV FOR PTT 59 - 78; Start 06/07/20 at 19:45 Active Scripts Active Reported Vitamin A 8,000 Unit Capsule 10,000 Unit PO DAILY Tramadol Hcl 50 Mg Tablet 50 Mg PO Q4HRS PRN Prednisone 20 Mg Tablet 1 Tab PO DAILY Pantoprazole Sodium 40 Mg Tablet.dr 40 Mg PO DAILY [place] 3 Fish Oil Softgel ([place]-3 Fatty Acids/Fish Oil) 1 Each Capsule.dr 1 Each PO DAILY Levothyroxine Sodium 75 Mcg Tablet 1 Tab PO DAILY Ferrous Sulfate 325 Mg Tablet 1 Tab PO DAILY Estradiol 2 Mg Tablet 1 Tab PO DAILY Symbicort 80-4.5 Mcg Inhaler (Budesonide/Formoterol Fumarate) 10.2 Gm Hfa.aer.ad 2 Puff IH BID Atenolol 50 Mg Tablet 1 Tab PO DAILY Vitamin C (Ascorbic Acid) 500 Mg Capsule.er 1 Cap PO DAILY 30 Days Alendronate Sodium 70 Mg Tablet 1 Tab PO WEEKLY Proair Hfa (Albuterol Sulfate) 8.5 Gm Hfa.aer.ad 2 Puff IH PRN Q4-6HRS PRN 21 Days Eliquis (Apixaban) 5 Mg Tablet 5 Mg PO BID Allergies Allergies: Coded Allergies: Penicillins (Verified Allergy, Unknown, UNKNOWN, 06/05/20) ROS General: YES: Fatigue, Malaise PSYCHOLOGICAL ROS: No: Hallucinations, Hostility Eyes: No Eye Pain, No Itchy Eyes HEENT: YES: Sinus pain; No: Oral lesions ALLERGY AND IMMUNOLOGY: YES: Nasal Congestion, Post Nasal Drip Hematological and Lymphatic: No: Brusing, Night Sweats ENDOCRINE: YES: Malaise/lethargy; No: Mood Swings Respiratory: YES: Cough, Shortness of breath; No: Hemoptysis Cardiovascular: No Chest Pain, No Palpitations, No Edema Gastrointestinal: No Nausea, No Vomiting, No Abdominal Pain, No Diarrhea Genitourinary: No Urgency, No Pain Musculoskeletal: No Joint Swelling, No Muscle Pain Skin: No Dry Skin Physical Exam General: Alert HEENT: Atraumatic Lungs: Other (In no acute distress) Heart: Other (No edema) Abdomen: Other (No distention) Skin: No rashes Neuro: Normal speech Psych/Mental Status: Mental status NL MUSCULOSKELETAL: No deformity Vitals VITALS Vital Signs Date Time Temp Pulse Resp B/P (MAP) Pulse Ox O2 Delivery O2 Flow Rate FiO2 06/08/20 03:00 96.3 88 20 144/95 (111) 94 Nasal Cannula 2.0 96.3 Labs Labs Laboratory Tests Test 06/06/20 09:48 06/07/20 04:38 06/07/20 18:20 06/08/20 00:05 Sodium Level 140 mmol/L (136-145) Potassium Level 4.0 mmol/L (3.5-5.1) Chloride Level 105 mmol/L (98-107) Carbon Dioxide Level 27 mmol/L (21-32) Anion Gap 8 (6-14) Blood Urea Nitrogen 21 mg/dL (7-20) Creatinine 0.8 mg/dL (0.6-1.0) Estimated GFR (Cockcroft-Gault) 68.2 Glucose Level 68 mg/dL (70-99) Calcium Level 7.3 mg/dL (8.5-10.1) Troponin I Quantitative 0.072 ng/mL (0.000-0.055) Triglycerides Level 184 mg/dL (0-150) Cholesterol Level 171 mg/dL (0-200) LDL Cholesterol, Calculated 81 mg/dL (0-100) VLDL Cholesterol, Calculated 37 mg/dL (0-40) Non-HDL Cholesterol Calculated 118 mg/dL (0-129) HDL Cholesterol 53 mg/dL (40-60) Cholesterol/HDL Ratio 3.2 Procalcitonin < 0.10 ng/mL (0.00-0.10) White Blood Count 8.4 x10^3/uL (4.0-11.0) Red Blood Count 3.96 x10^6/uL (3.50-5.40) Hemoglobin 12.8 g/dL (12.0-15.5) Hematocrit 37.2 % (36.0-47.0) Mean Corpuscular Volume 94 fL (79-100) Mean Corpuscular Hemoglobin 32 pg (25-35) Mean Corpuscular Hemoglobin Concent 34 g/dL (31-37) Red Cell Distribution Width 13.3 % (11.5-14.5) Platelet Count 151 x10^3/uL (140-400) Heparin Anti-Xa Act, Unfractionated > 1.10 IU/mL (0.30-0.70) Activated Partial Thromboplast Time > 150 SEC (24-38) Laboratory Tests Test 06/07/20 18:20 06/08/20 00:05 Heparin Anti-Xa Act, Unfractionated > 1.10 IU/mL (0.30-0.70) Activated Partial Thromboplast Time > 150 SEC (24-38) Assessment/Plan Assessment/Plan Assessment: Pulmonary embolism, unprovoked Family history of VTE at age less than 50 COVID-19 pneumonia Recommendations: -Continue with therapeutic anticoagulation with Eliquis in the absence of clinically evident bleeding and falls -Given her family history of VTE, resting for hypercoagulable syndromes can be considered. Can arrange outpatient follow-up to discuss benefits and risks of pursuing this testing approximately 4 weeks from her hospital discharge. -If she is agreeable, can plan on testing for protein C, protein S, PT gene mutation, factor V Leiden, Antithrombin III activity -Continue with supportive care for respiratory failure from PE and COVID-19 pneumonia -Continue with supportive care for COVID-19 pneumonia -Follow pulmonology recommendations -Rest per primary service Micah Arriaga MD Medical Oncology/Hematology Ph: [phone] CARLI ARRIAGA MD Jun 08, 2020 09:12
[2020-06-08] MEDS: ASPIRIN ENTERIC COATED 81 MG TABLET.DR. PO SCH (09:15)
--- NOTE | 2020-06-08 09:25 | PDOC ---
PROGRESS NOTES Date of Service: DATE: 06/08/20 TIME: 09:24 Subjective Subjective No new complaints. Saturating well on room air. Objective Objective Vital Signs Date Time Temp Pulse Resp B/P (MAP) Pulse Ox O2 Delivery O2 Flow Rate FiO2 06/08/20 03:00 96.3 88 20 144/95 (111) 94 Nasal Cannula 2.0 96.3 Intake and Output 06/08/20 07:00 Intake Total 1000 ml Output Total 400 ml Balance 600 ml IV Total 1000 ml Output Urine Total 400 ml # Voids 2 # Bowel Movements 1 Physical Exam Abdomen: Other (No distention) Heart: Other (No edema) Extremities: No cyanosis, No edema General: Alert HEENT: Atraumatic Lungs: Other (In no acute distress) MUSCULOSKELETAL: No deformity Neuro: Normal speech Psych/Mental Status: Mental status NL Skin: No rashes Assessment Assessment 1. Acute hypoxic respiratory failure secondary to pulmonary embolus and Covid pneumonia. Continue current management per pulmonary team. 2. Mild troponin elevation: Trop at 0.08 possibly from RV strain from PE. No CP and no significant EKG changes. We will consider 2D echo and ischemic evaluation once recovered from Covid. 3. Acute on chronic diastolic heart failure, better compensated 4. HTN: Controlled 5. CAD: incidental finding noted via CTA, patient presently chest pain-free. Plan outpatient MPI. 6. Hypothyroidism, continue levothyroxine 7. Mild KAYDEN, Improved Comment Review of Relevant I have reviewed the following items mary (where applicable) has been applied. Labs Laboratory Tests Test 06/07/20 18:20 06/08/20 00:05 Heparin Anti-Xa Act, Unfractionated > 1.10 IU/mL (0.30-0.70) Activated Partial Thromboplast Time > 150 SEC (24-38) Microbiology 06/05/20 Urine Culture - Preliminary, Resulted Medications Current Medications Heparin Sodium (Porcine) (Heparin Sodium) 1,000 unit PRN Q6HRS PRN IV FOR PTT 59 - 78; Start 06/07/20 at 19:45 Heparin Sodium (Porcine) (Heparin Sodium) 1,700 unit PRN Q6HRS PRN IV FOR PTT < 40; Start 06/07/20 at 19:45 Heparin Sodium (Porcine) (Heparin Sodium) 2,000 unit PRN Q6HRS PRN IV FOR PTT 40 - 58; Start 06/07/20 at 19:45 Heparin Sodium/ Dextrose 250 ml @ 0 mls/hr CONT PRN IV PER PROTOCOL Last administered on 06/07/20at 21:05; Start 06/07/20 at 19:45 Vitals/I & O Vital Sign - Last 24 Hours 06/07/20 06/07/20 06/07/20 06/07/20 11:59 15:59 19:00 19:45 Temp 97.7 98.5 98.3 97.7 98.5 98.3 Pulse 83 80 85 Resp 20 B/P (MAP) 158/74 (102) 134/72 (92) 106/65 (79) Pulse Ox 93 83 95 O2 Delivery Room Air Room Air Room Air Nasal Cannula O2 Flow Rate 2.0 06/07/20 06/08/20 23:00 03:00 Temp 98.0 96.3 98.0 96.3 Pulse 83 88 Resp 20 B/P (MAP) 134/96 (109) 144/95 (111) Pulse Ox 93 94 O2 Delivery Room Air Nasal Cannula O2 Flow Rate 2.0 Intake and Output 06/07/20 06/07/20 06/08/20 15:00 23:00 07:00 Intake Total 1000 ml Output Total 400 ml Balance 600 ml CHARLEY FIERRO MD Jun 08, 2020 09:24
[2020-06-08 10:11] LABS: HEMATOCRIT 36.8 % (36.0-47.0); HEMOGLOBIN 12.4 g/dL (12.0-15.5); RED BLOOD COUNT 3.89 x10^6/uL (3.50-5.40); RED CELL DISTRIBUTION WIDTH 13.5 % (11.5-14.5); WHITE BLOOD COUNT 6.7 x10^3/uL (4.0-11.0)
--- NOTE | 2020-06-08 10:11 | PDOC ---
PULMONARY PROGRESS NOTES DATE: 06/08/20 TIME: 10:07 Subjective no soa, remains on RA no further epistaxis , on heparin Vitals Vital Signs Date Time Temp Pulse Resp B/P (MAP) Pulse Ox O2 Delivery O2 Flow Rate FiO2 06/08/20 07:59 101.5 77 26 120/71 (87) 94 Nasal Cannula 1.0 101.5 ROS: No Chest Pain, No Increase Cough General: Alert, No acute distress Lungs: Clear Cardiovascular: S1 Abdomen: Soft Neuro Exam: Alert Extremities: No Edema Skin: Warm Labs Laboratory Tests Test 06/07/20 04:38 06/07/20 18:20 06/08/20 00:05 White Blood Count 8.4 x10^3/uL (4.0-11.0) Red Blood Count 3.96 x10^6/uL (3.50-5.40) Hemoglobin 12.8 g/dL (12.0-15.5) Hematocrit 37.2 % (36.0-47.0) Mean Corpuscular Volume 94 fL (79-100) Mean Corpuscular Hemoglobin 32 pg (25-35) Mean Corpuscular Hemoglobin Concent 34 g/dL (31-37) Red Cell Distribution Width 13.3 % (11.5-14.5) Platelet Count 151 x10^3/uL (140-400) Heparin Anti-Xa Act, Unfractionated > 1.10 IU/mL (0.30-0.70) Activated Partial Thromboplast Time > 150 SEC (24-38) Laboratory Tests Test 06/07/20 18:20 06/08/20 00:05 Heparin Anti-Xa Act, Unfractionated > 1.10 IU/mL (0.30-0.70) Activated Partial Thromboplast Time > 150 SEC (24-38) Medications Active Scripts Medications Dose Route/Sig Max Daily Dose Days Date Category Vitamin A 8,000 Unit Capsule 10,000 Unit PO DAILY 06/06/20 Reported Tramadol Hcl 50 Mg Tablet 50 Mg PO Q4HRS PRN 06/06/20 Reported Prednisone 20 Mg Tablet 1 Tab PO DAILY 06/06/20 Reported Pantoprazole Sodium 40 Mg Tablet.dr 40 Mg PO DAILY 06/06/20 Reported [place] 3 Fish Oil Softgel ([place]-3 Fatty Acids/Fish Oil) 1 Each Capsule.dr 1 Each PO DAILY 06/06/20 Reported Levothyroxine Sodium 75 Mcg Tablet 1 Tab PO DAILY 06/06/20 Reported Ferrous Sulfate 325 Mg Tablet 1 Tab PO DAILY 06/06/20 Reported Estradiol 2 Mg Tablet 1 Tab PO DAILY 06/06/20 Reported Symbicort 80-4.5 Mcg Inhaler (Budesonide/Formoterol Fumarate) 10.2 Gm Hfa.aer.ad 2 Puff IH BID 06/06/20 Reported Atenolol 50 Mg Tablet 1 Tab PO DAILY 06/06/20 Reported Vitamin C (Ascorbic Acid) 500 Mg Capsule.er 1 Cap PO DAILY 30 06/06/20 Reported Alendronate Sodium 70 Mg Tablet 1 Tab PO WEEKLY 06/06/20 Reported Proair Hfa (Albuterol Sulfate) 8.5 Gm Hfa.aer.ad 2 Puff IH PRN Q4-6HRS PRN 21 06/06/20 Reported Eliquis (Apixaban) 5 Mg Tablet 5 Mg PO BID 06/06/20 Reported Impression . 1. 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 At that time, she was subsequently discharged on Eliquis. She now presents with dyspnea, although she is not requiring any supplemental oxygen. Her CT angiogram is concerning for chronic thromboembolic disease with a clot/filling defect adherent to the proximal wall of the right main pulmonary artery. Additional defects were seen with a web-like morphology in the right lower lobe, basal pulmonary artery. There is also occlusion of the anterior segment of the right upper lobe pulmonary artery. She has evidence of pulmonary hypertension as well. She would require workup for hypercoagulable state as her son has DVT at age 48. She has lost 20 pounds in last one month, which could be related to her Graves' disease, but she would need a malignancy workup as well. 2. No significant tobacco history. 3. No prior history of thromboembolic disease. No recent immobilization trauma and no known cancers. 4. Pulmonary hypertension suspected on CTA chest. 5. Recent bilateral DVT at [facility] 6. Epistaxis , resolved 7. COVID-19 Pneumonia Plan . 1. start Eliquis 2. I have reviewed the report of the CT angiogram and venous Dopplers from [facility]. She had bilateral PE including very large central embolus in the right pulmonary artery.She also had a 2.1 cm cavitary lesion in RML, now improving. f/u dopplers today with resolved DVT. No lung mass seen. PE in right pulmonary artery is likely improving. 3. Hold off on IVC filter. Monitor for risk for fall. 4. Obtain echocardiogram to assess for pulmonary hypertension. 5. She will need a repeat CT angiogram in 6-8 weeks to assess for persistent chronic thromboembolic disease. 6. Hypercoagulable panel as an outpatient. 7. CT abdomen and pelvis with no evidence of malignancy 8. start Eliquis 9. repeat ct chest in 4-6 weeks 10. start decadron for covid-19 ALANA TERESA MD Jun 08, 2020 10:11
[2020-06-08] MEDS: DEXAMETHASONE SOD PHOS 4 MG/ML VIAL IVP SCH (10:20)
--- NOTE | 2020-06-08 10:28 | PDOC ---
[employer] PROGRESS NOTE Date of Service DOS: DATE: 06/08/20 TIME: 10:27 Chief Complaint Chief Complaint Acute hypoxic respiratory distress due to pulmonary emboli and COVID-19 infection COVID-19 positive Failure outpatient treatment Lactic acidosis KAYDEN Vasomotor nephropathy Plan: Admit patient on IV heparin drip Consultation was placed to IR; order CTA abdomen pelvis in the morning; IV normal saline to clear IV contrast Bilateral lower extremity venous Dopplers Consultation with cardiology, EKG concerning for right heart strain and CTA chest showing advanced cardiovascular disease with calcifications of coronary arteries Consultation to pulmonology Consultation to hematology/oncology due to failure of outpatient Eliquis treatment Patient received sepsis fluid bolus IV Levaquin 750 mg x 1 to cover for possible atypical infection FEN - Cardiac diet PPX - Heparin FULL CODE Dispo - inpatient for above History of Present Illness History of Present Illness 06/08/2020 No acute events overnight. Patient saturating well on room air. No epistasis events while on heparin drip. Patient will be restarted on Eliquis today. Discussed with plan with daughter Laura on the phone. Daughter states that patient would benefit from rehab and they would prefer patient to be placed in [facility] as the patient has been there before from a prior hospital admission and was pleased with the service.. Will discuss with medical social worker to arrange for this on Wednesday. Patient's chart, labs, images were reviewed and discussed with RN 06/07/2020 No acute events overnight. Patient is currently saturating well on room air at 95%. Heparin drip was restarted today. Will discuss with hematology to weigh in their opinions for restarting another anticoagulant upon discharge. All imaging studies negative for any malignancy. Patient's chart, labs, images were reviewed and discussed with RN 06/06/2020 No acute events overnight. Patient is afebrile and saturating 96% on room air. Currently on heparin drip. Pending CT abdomen pelvis. Patient's chart, labs, images were reviewed and discussed with RN 85-year-old female with past medical history PE on Eliquis, who presents to the ER with complaints of shortness of breath since this morning. She reports associated nonproductive cough, weakness, lethargy and nausea. She was recently treated at [facility] for extensive bilateral pulmonary embolism and DVT in the right lower extremity. She was started on Eliquis with plan to place IVC filter, but this was unable to be performed due to the extent of her clot up to her IVC. She denies any prior history of DVT or PE, and states she has been compliant with her Eliquis. Of note she was receiving physical therapy at home, and her therapist tested positive for COVID-19. Patient and family were tested with negative results. CTA on admission compatible with evolving pulmonary emboli such as in the anterior basal right lower lobe. EKG is concerning for right heart strain. Will admit patient for further medical management. Vitals/I&O Vitals/I&O: Vital Signs Date Time Temp Pulse Resp B/P (MAP) Pulse Ox O2 Delivery O2 Flow Rate FiO2 06/08/20 07:59 101.5 77 26 120/71 (87) 94 Nasal Cannula 1.0 101.5 I & O 06/07/20 06/07/20 06/08/20 15:00 23:00 07:00 Intake Total 1000 ml Output Total 400 ml Balance 600 ml Physical Exam General: Alert Heart: Other (No edema) Lungs: Clear Abdomen: Other (No distention) Extremities: No cyanosis, No edema Skin: No rashes Labs Labs: Laboratory Tests Test 06/07/20 18:20 06/08/20 00:05 Heparin Anti-Xa Act, Unfractionated > 1.10 IU/mL (0.30-0.70) Activated Partial Thromboplast Time > 150 SEC (24-38) Comment Review of Relevant I have reviewed the following items mary (where applicable) has been applied. Medications: Current Medications Medications (Trade) Dose Ordered Sig/Danielle Route PRN Reason Start Time Stop Time Status Last Admin Dose Admin Heparin Sodium/ Dextrose 250 ml @ 0 mls/hr CONT PRN IV PER PROTOCOL 06/07/20 19:45 06/07/20 21:05 Dexamethasone Sodium Phosphate (Decadron) 4 mg DAILY IVP 06/08/20 10:30 06/08/20 10:20 Justifications for Admission Other Justification PE, failed outpatient treatment REX SHIRLEY MD Jun 08, 2020 10:28
[2020-06-08] MEDS: IV NORMAL SALINE 1000ML BAG 1,000 ML IV SCH (10:40)
[2020-06-08 11:59] VITALS: BP 138/69
[2020-06-08 15:59] VITALS: BP 97/62
[2020-06-08 19:58] VITALS: BP 146/74
[2020-06-08] MEDS: APIXABAN 5 MG TABLET. PO SCH (21:00)
[2020-06-08 23:22] VITALS: BP 144/81
[2020-06-09] MEDS: IV NORMAL SALINE 1000ML BAG 1,000 ML IV SCH ×2 (00:07→11:20)
[2020-06-09 03:32] VITALS: BP 159/87
[2020-06-09 04:06] LABS: HEMATOCRIT 36.3 % (36.0-47.0); HEMOGLOBIN 12.5 g/dL (12.0-15.5); RED BLOOD COUNT 3.9 x10^6/uL (3.50-5.40); RED CELL DISTRIBUTION WIDTH 13.5 % (11.5-14.5)
[2020-06-09 07:00] VITALS: BP 79/46
[2020-06-09] MEDS: ASPIRIN ENTERIC COATED 81 MG TABLET.DR. PO SCH (07:55)
[2020-06-09] MEDS: APIXABAN 5 MG TABLET. PO SCH ×2 (07:56→20:32)
[2020-06-09] MEDS: DEXAMETHASONE SOD PHOS 4 MG/ML VIAL IVP SCH (07:56)
--- NOTE | 2020-06-09 10:30 | PDOC ---
PULMONARY PROGRESS NOTES DATE: 06/09/20 TIME: 10:28 Subjective no soa, remains on RA no further epistaxis , on heparin Vitals Vital Signs Date Time Temp Pulse Resp B/P (MAP) Pulse Ox O2 Delivery O2 Flow Rate FiO2 06/09/20 08:00 Nasal Cannula 2.0 06/09/20 07:00 95.9 86 20 79/46 (57) 89 95.9 ROS: No Chest Pain, No Increase Cough General: Alert, No acute distress Lungs: Clear Cardiovascular: S1 Abdomen: Soft Neuro Exam: Alert Extremities: No Edema Skin: Warm Labs Laboratory Tests Test 06/07/20 18:20 06/08/20 00:05 06/08/20 09:59 06/09/20 03:30 Heparin Anti-Xa Act, Unfractionated > 1.10 IU/mL (0.30-0.70) Activated Partial Thromboplast Time > 150 SEC (24-38) 50 SEC (24-38) White Blood Count 6.7 x10^3/uL (4.0-11.0) 5.0 x10^3/uL (4.0-11.0) Red Blood Count 3.89 x10^6/uL (3.50-5.40) 3.90 x10^6/uL (3.50-5.40) Hemoglobin 12.4 g/dL (12.0-15.5) 12.5 g/dL (12.0-15.5) Hematocrit 36.8 % (36.0-47.0) 36.3 % (36.0-47.0) Mean Corpuscular Volume 95 fL (79-100) 93 fL (79-100) Mean Corpuscular Hemoglobin 32 pg (25-35) 32 pg (25-35) Mean Corpuscular Hemoglobin Concent 34 g/dL (31-37) 35 g/dL (31-37) Red Cell Distribution Width 13.5 % (11.5-14.5) 13.5 % (11.5-14.5) Platelet Count 140 x10^3/uL (140-400) 142 x10^3/uL (140-400) Laboratory Tests Test 06/09/20 03:30 White Blood Count 5.0 x10^3/uL (4.0-11.0) Red Blood Count 3.90 x10^6/uL (3.50-5.40) Hemoglobin 12.5 g/dL (12.0-15.5) Hematocrit 36.3 % (36.0-47.0) Mean Corpuscular Volume 93 fL (79-100) Mean Corpuscular Hemoglobin 32 pg (25-35) Mean Corpuscular Hemoglobin Concent 35 g/dL (31-37) Red Cell Distribution Width 13.5 % (11.5-14.5) Platelet Count 142 x10^3/uL (140-400) Medications Active Scripts Medications Dose Route/Sig Max Daily Dose Days Date Category Vitamin A 8,000 Unit Capsule 10,000 Unit PO DAILY 06/06/20 Reported Tramadol Hcl 50 Mg Tablet 50 Mg PO Q4HRS PRN 06/06/20 Reported Prednisone 20 Mg Tablet 1 Tab PO DAILY 06/06/20 Reported Pantoprazole Sodium 40 Mg Tablet.dr 40 Mg PO DAILY 06/06/20 Reported [place] 3 Fish Oil Softgel ([place]-3 Fatty Acids/Fish Oil) 1 Each Capsule.dr 1 Each PO DAILY 06/06/20 Reported Levothyroxine Sodium 75 Mcg Tablet 1 Tab PO DAILY 06/06/20 Reported Ferrous Sulfate 325 Mg Tablet 1 Tab PO DAILY 06/06/20 Reported Estradiol 2 Mg Tablet 1 Tab PO DAILY 06/06/20 Reported Symbicort 80-4.5 Mcg Inhaler (Budesonide/Formoterol Fumarate) 10.2 Gm Hfa.aer.ad 2 Puff IH BID 06/06/20 Reported Atenolol 50 Mg Tablet 1 Tab PO DAILY 06/06/20 Reported Vitamin C (Ascorbic Acid) 500 Mg Capsule.er 1 Cap PO DAILY 30 06/06/20 Reported Alendronate Sodium 70 Mg Tablet 1 Tab PO WEEKLY 06/06/20 Reported Proair Hfa (Albuterol Sulfate) 8.5 Gm Hfa.aer.ad 2 Puff IH PRN Q4-6HRS PRN 21 06/06/20 Reported Eliquis (Apixaban) 5 Mg Tablet 5 Mg PO BID 06/06/20 Reported Impression . 1. 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 about 4 weeks ago. At that time, she was subsequently discharged on Eliquis. She now presents with dyspnea, although she is not requiring any supplemental oxygen. Her CT angiogram is concerning for chronic thromboembolic disease with a clot/filling defect adherent to the proximal wall of the right main pulmonary artery. Additional defects were seen with a web-like morphology in the right lower lobe, basal pulmonary artery. There is also occlusion of the anterior segment of the right upper lobe pulmonary artery. She has evidence of pulmonary hypertension as well. She would require workup for hypercoagulable state as her son has DVT at age 48. She has lost 20 pounds in last one month, which could be related to her Graves' disease, but she would need a malignancy workup as well. 2. No significant tobacco history. 3. No prior history of thromboembolic disease. No recent immobilization trauma and no known cancers. 4. Pulmonary hypertension suspected on CTA chest. 5. Recent bilateral DVT at [facility] 6. Epistaxis , resolved 7. COVID-19 Pneumonia Plan . 1. start Eliquis 2. I have reviewed the report of the CT angiogram and venous Dopplers from [facility]. She had bilateral PE including very large central embolus in the right pulmonary artery.She also had a 2.1 cm cavitary lesion in RML, now improving. f/u dopplers with resolved DVT.. PE in right pulmonary artery is likely improving. 3. Hold off on IVC filter. Monitor for risk for fall. 4. Obtain echocardiogram to assess for pulmonary hypertension. 5. She will need a repeat CT angiogram in 6-8 weeks to assess for persistent chronic thromboembolic disease. 6. Hypercoagulable panel as an outpatient. 7. CT abdomen and pelvis with no evidence of malignancy 8. started back on Eliquis 9. repeat ct chest in 4-6 weeks 10. decadron for covid-19 ALANA TERESA MD Jun 09, 2020 10:30
[2020-06-09 11:00] VITALS: BP 127/58
--- NOTE | 2020-06-09 11:54 | PDOC ---
PROGRESS NOTES Date of Service: DATE: 06/09/20 TIME: 11:52 Subjective Subjective Denied any chest pain or shortness of breath Objective Objective Vital Signs Date Time Temp Pulse Resp B/P (MAP) Pulse Ox O2 Delivery O2 Flow Rate FiO2 06/09/20 11:00 94.5 94 20 127/58 (81) 90 Nasal Cannula 1.0 94.5 Intake and Output 06/09/20 07:00 Intake Total 1380 ml Balance 1380 ml Intake Oral 380 ml IV Total 1000 ml # Voids 3 Physical Exam Abdomen: Other (No distention) Heart: Other (No edema) Extremities: No cyanosis, No edema General: Alert HEENT: Atraumatic Lungs: Other (In no acute distress) MUSCULOSKELETAL: No deformity Neuro: Normal speech Psych/Mental Status: Mental status NL Skin: No rashes Assessment Assessment 1. Acute hypoxic respiratory failure secondary to pulmonary embolus and Covid pneumonia. Continue Eliquis for anticoagulation. Pulmonary team following. 2. Mild troponin elevation: Trop at 0.08 possibly from RV strain from PE. No CP and no significant EKG changes. We will consider 2D echo and ischemic evaluation once recovered from Covid. 3. Acute on chronic diastolic heart failure, better compensated 4. HTN: Controlled 5. CAD: incidental finding noted via CTA, patient presently chest pain-free. Plan outpatient MPI. 6. Hypothyroidism, continue levothyroxine 7. Mild KAYDEN, Improved Comment Review of Relevant I have reviewed the following items mary (where applicable) has been applied. Labs Laboratory Tests Test 06/09/20 03:30 White Blood Count 5.0 x10^3/uL (4.0-11.0) Red Blood Count 3.90 x10^6/uL (3.50-5.40) Hemoglobin 12.5 g/dL (12.0-15.5) Hematocrit 36.3 % (36.0-47.0) Mean Corpuscular Volume 93 fL (79-100) Mean Corpuscular Hemoglobin 32 pg (25-35) Mean Corpuscular Hemoglobin Concent 35 g/dL (31-37) Red Cell Distribution Width 13.5 % (11.5-14.5) Platelet Count 142 x10^3/uL (140-400) Microbiology 06/05/20 Urine Culture - Final, Complete 06/05/20 Antimicrobic Susceptibility - Final, Complete Medications Current Medications Apixaban (Eliquis) 5 mg BID PO Last administered on 06/09/20at 07:56; Start 06/08/20 at 21:00 Vitals/I & O Vital Sign - Last 24 Hours 06/08/20 06/08/20 06/08/20 06/08/20 11:59 15:59 19:25 19:58 Temp 98.2 97.3 97.4 98.2 97.3 97.4 Pulse 72 80 69 Resp 22 22 20 B/P (MAP) 138/69 (92) 97/62 (74) 146/74 (98) Pulse Ox 94 93 97 O2 Delivery Nasal Cannula Nasal Cannula Nasal Cannula Nasal Cannula O2 Flow Rate 1.0 1.0 2.0 1.0 06/08/20 06/09/20 06/09/20 06/09/20 23:22 03:32 07:00 08:00 Temp 97.4 97.5 95.9 97.4 97.5 95.9 Pulse 73 73 86 Resp 16 20 20 B/P (MAP) 144/81 (102) 159/87 (111) 79/46 (57) Pulse Ox 93 93 89 O2 Delivery Nasal Cannula Nasal Cannula Nasal Cannula Nasal Cannula O2 Flow Rate 1.0 1.0 1.0 2.0 06/09/20 11:00 Temp 94.5 94.5 Pulse 94 Resp 20 B/P (MAP) 127/58 (81) Pulse Ox 90 O2 Delivery Nasal Cannula O2 Flow Rate 1.0 Intake and Output 06/08/20 06/08/20 06/09/20 15:00 23:00 07:00 Intake Total 200 ml 1180 ml Balance 200 ml 1180 ml CHARLEY FIERRO MD Jun 09, 2020 11:54
--- NOTE | 2020-06-09 13:40 | PDOC ---
[employer] PROGRESS NOTE Date of Service DOS: DATE: 06/09/20 TIME: 13:34 Chief Complaint Chief Complaint Acute hypoxic respiratory distress due to pulmonary emboli and COVID-19 infection COVID-19 positive Failure outpatient treatment Lactic acidosis KAYDEN Vasomotor nephropathy Plan: Admit patient on IV heparin drip Consultation was placed to IR; order CTA abdomen pelvis in the morning; IV normal saline to clear IV contrast Bilateral lower extremity venous Dopplers Consultation with cardiology, EKG concerning for right heart strain and CTA chest showing advanced cardiovascular disease with calcifications of coronary arteries Consultation to pulmonology Consultation to hematology/oncology due to failure of outpatient Eliquis treatment Patient received sepsis fluid bolus IV Levaquin 750 mg x 1 to cover for possible atypical infection FEN - Cardiac diet PPX - Heparin FULL CODE Dispo - inpatient for above History of Present Illness History of Present Illness 06/09/20 No acute events overniht. Saturating well on RA at 93%. Patient's chart, labs, images were reviewed and discussed with RN 06/08/2020 No acute events overnight. Patient saturating well on room air. No epistasis events while on heparin drip. Patient will be restarted on Eliquis today. Discussed with plan with daughter Laura on the phone. Daughter states that patient would benefit from rehab and they would prefer patient to be placed in [facility] as the patient has been there before from a prior hospital admission and was pleased with the service.. Will discuss with social media community manager to arrange for this on Wednesday. Patient's chart, labs, images were reviewed and discussed with RN 06/07/2020 No acute events overnight. Patient is currently saturating well on room air at 95%. Heparin drip was restarted today. Will discuss with hematology to weigh in their opinions for restarting another anticoagulant upon discharge. All im aging studies negative for any malignancy. Patient's chart, labs, images were reviewed and discussed with RN 06/06/2020 No acute events overnight. Patient is afebrile and saturating 96% on room air. Currently on heparin drip. Pending CT abdomen pelvis. Patient's chart, labs, images were reviewed and discussed with RN 85-year-old female with past medical history PE on Eliquis, who presents to the ER with complaints of shortness of breath since this morning. She reports associated nonproductive cough, weakness, lethargy and nausea. She was recently treated at [facility] for extensive bilateral pulmonary embolism and DVT in the right lower extremity. She was started on Eliquis with plan to place IVC filter, but this was unable to be performed due to the extent of her clot up to her IVC. She denies any prior history of DVT or PE, and states she has been compliant with her Eliquis. Of note she was receiving physical therapy at home, and her therapist tested positive for COVID-19. Patient and family were tested with negative results. CTA on admission compatible with evolving pulmonary emboli such as in the anterior basal right lower lobe. EKG is concerning for right heart strain. Will admit patient for further medical management. Vitals/I&O Vitals/I&O: Vital Signs Date Time Temp Pulse Resp B/P (MAP) Pulse Ox O2 Delivery O2 Flow Rate FiO2 06/09/20 11:00 94.5 94 20 127/58 (81) 90 Nasal Cannula 1.0 94.5 I & O 06/08/20 06/08/20 06/09/20 15:00 23:00 07:00 Intake Total 200 ml 1180 ml Balance 200 ml 1180 ml Physical Exam General: Alert Heart: Other (No edema) Lungs: Clear Abdomen: Other (No distention) Extremities: No cyanosis, No edema Skin: No rashes Labs Labs: Laboratory Tests Test 06/09/20 03:30 White Blood Count 5.0 x10^3/uL (4.0-11.0) Red Blood Count 3.90 x10^6/uL (3.50-5.40) Hemoglobin 12.5 g/dL (12.0-15.5) Hematocrit 36.3 % (36.0-47.0) Mean Corpuscular Volume 93 fL (79-100) Mean Corpuscular Hemoglobin 32 pg (25-35) Mean Corpuscular Hemoglobin Concent 35 g/dL (31-37) Red Cell Distribution Width 13.5 % (11.5-14.5) Platelet Count 142 x10^3/uL (140-400) Comment Review of Relevant I have reviewed the following items mary (where applicable) has been applied. Medications: Current Medications Medications (Trade) Dose Ordered Sig/Danielle Route PRN Reason Start Time Stop Time Status Last Admin Dose Admin Apixaban (Eliquis) 5 mg BID PO 06/08/20 21:00 06/09/20 07:56 Justifications for Admission Other Justification PE, failed outpatient treatment REX SHIRLEY MD Jun 09, 2020 13:40
[2020-06-09 15:00] VITALS: BP 152/73
[2020-06-09 19:00] VITALS: BP 165/70
[2020-06-09 23:00] VITALS: BP 175/91
[2020-06-10] MEDS: IV NORMAL SALINE 1000ML BAG 1,000 ML IV SCH ×3 (00:52→20:55)
[2020-06-10 03:00] VITALS: BP 121/60
[2020-06-10 07:00] VITALS: BP 140/79
[2020-06-10] MEDS: ASPIRIN ENTERIC COATED 81 MG TABLET.DR. PO SCH (10:14)
[2020-06-10] MEDS: APIXABAN 5 MG TABLET. PO SCH ×2 (10:14→20:55)
[2020-06-10] MEDS: DEXAMETHASONE SOD PHOS 4 MG/ML VIAL IVP SCH (10:14)
[2020-06-10 11:00] VITALS: BP 123/57
--- NOTE | 2020-06-10 11:08 | PDOC ---
PULMONARY PROGRESS NOTES DATE: 06/10/20 TIME: 11:05 Subjective PT. remains on 2 liters N/C now on eliquis, low grade fevr overnight and mild cough no overnight concerns Vitals Vital Signs Date Time Temp Pulse Resp B/P (MAP) Pulse Ox O2 Delivery O2 Flow Rate FiO2 06/10/20 07:55 Nasal Cannula 2.0 06/10/20 07:00 96.5 88 24 140/79 (99) 83 96.5 ROS: No Nausea, No Chest Pain, No Abdominal Pain, No Increase Cough General: Alert, No acute distress Lungs: Clear Cardiovascular: S1 Abdomen: Soft Neuro Exam: Alert Extremities: No Edema Skin: Warm Labs Laboratory Tests Test 06/09/20 03:30 White Blood Count 5.0 x10^3/uL (4.0-11.0) Red Blood Count 3.90 x10^6/uL (3.50-5.40) Hemoglobin 12.5 g/dL (12.0-15.5) Hematocrit 36.3 % (36.0-47.0) Mean Corpuscular Volume 93 fL (79-100) Mean Corpuscular Hemoglobin 32 pg (25-35) Mean Corpuscular Hemoglobin Concent 35 g/dL (31-37) Red Cell Distribution Width 13.5 % (11.5-14.5) Platelet Count 142 x10^3/uL (140-400) Medications Active Scripts Medications Dose Route/Sig Max Daily Dose Days Date Category Vitamin A 8,000 Unit Capsule 10,000 Unit PO DAILY 06/06/20 Reported Tramadol Hcl 50 Mg Tablet 50 Mg PO Q4HRS PRN 06/06/20 Reported Prednisone 20 Mg Tablet 1 Tab PO DAILY 06/06/20 Reported Pantoprazole Sodium 40 Mg Tablet.dr 40 Mg PO DAILY 06/06/20 Reported [place] 3 Fish Oil Softgel ([place]-3 Fatty Acids/Fish Oil) 1 Each Capsule.dr 1 Each PO DAILY 06/06/20 Reported Levothyroxine Sodium 75 Mcg Tablet 1 Tab PO DAILY 06/06/20 Reported Ferrous Sulfate 325 Mg Tablet 1 Tab PO DAILY 06/06/20 Reported Estradiol 2 Mg Tablet 1 Tab PO DAILY 06/06/20 Reported Symbicort 80-4.5 Mcg Inhaler (Budesonide/Formoterol Fumarate) 10.2 Gm Hfa.aer.ad 2 Puff IH BID 06/06/20 Reported Atenolol 50 Mg Tablet 1 Tab PO DAILY 06/06/20 Reported Vitamin C (Ascorbic Acid) 500 Mg Capsule.er 1 Cap PO DAILY 30 06/06/20 Reported Alendronate Sodium 70 Mg Tablet 1 Tab PO WEEKLY 06/06/20 Reported Proair Hfa (Albuterol Sulfate) 8.5 Gm Hfa.aer.ad 2 Puff IH PRN Q4-6HRS PRN 21 06/06/20 Reported Eliquis (Apixaban) 5 Mg Tablet 5 Mg PO BID 06/06/20 Reported Impression . 1. Suspected chronic thromboembolic disease in a patient who presented with acute pulmonary embolism and extensive deep venous thrombosis at [facility] about 4 weeks ago. At that time, she was subsequently discharged on Eliquis. She now presents with dyspnea, although she is not requiring any supplemental oxygen. Her CT angiogram is concerning for chronic thromboembolic disease with a clot/filling defect adherent to the proximal wall of the right main pulmonary artery. Additional defects were seen with a web-like morphology in the right lower lobe, basal pulmonary artery. There is also occlusion of the anterior segment of the right upper lobe pulmonary artery. She has evidence of pulmonary hypertension as well. She would require workup for hypercoagulable state as her son has DVT at age 48. She has lost 20 pounds in last one month, which could be related to her Graves' disease, but she would need a malignancy workup as well. 2. No significant tobacco history. 3. No prior history of thromboembolic disease. No recent immobilization trauma and no known cancers. 4. Pulmonary hypertension suspected on CTA chest. 5. Recent bilateral DVT at [facility] 6. Epistaxis , resolved 7. COVID-19 Pneumonia Plan . Continue supplemental oxygen currently on 2 liters N/C I have reviewed the report of the CT angiogram and venous Dopplers from [facility]. She had bilateral PE including very large central embolus in the right pulmonary artery.She also had a 2.1 cm cavitary lesion in RML, now improving. f/u dopplers with resolved DVT.. PE in right pulmonary artery is likely improving. Hold off on IVC filter. Monitor for risk for fall. 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 Hypercoagulable panel as an outpatient. CT abdomen and pelvis with no evidence of malignancy Continue Eliquis Continue steroids for full 10 day course DVT/GI PPX PT/OT Social work for D/C planning, pt. would benefit from [facility] ALANA TERESA MD Jun 10, 2020 11:08
--- NOTE | 2020-06-10 11:37 | PDOC ---
[employer] [facility] PROGRESS NOTE Date of Service DOS: DATE: 06/10/20 TIME: 11:35 Chief Complaint Chief Complaint Acute hypoxic respiratory distress due to pulmonary emboli and COVID-19 infection COVID-19 positive Failure outpatient treatment Lactic acidosis KAYDEN Vasomotor nephropathy History of Present Illness History of Present Illness 06/10/2020 Patient seen and examined on the COVID-19 floor She is a little more confused O2 requirements are up to 4 L per nasal cannula Discussed with case management Discussed with RN She appears quite ill 06/09/20 No acute events overniht. Saturating well on RA at 93%. Patient's chart, labs, images were reviewed and discussed with RN 06/08/2020 No acute events overnight. Patient saturating well on room air. No epistasis events while on heparin drip. Patient will be restarted on Eliquis today. Discussed with plan with daughter Laura on the phone. Daughter states that patient would benefit from rehab and they would [facility] as the patient has been there before from a prior hospital admission and was pleased with the service.. Will discuss with protective services social worker to arrange for this on Wednesday. Patient's chart, labs, images were reviewed and discussed with RN 06/07/2020 No acute events overnight. Patient is currently saturating well on room air at 95%. Heparin drip was restarted today. Will discuss with hematology to weigh in their opinions for restarting another anticoagulant upon discharge. All imaging studies negative for any malignancy. Patient's chart, labs, images were reviewed and discussed with RN 06/06/2020 No acute events overnight. Patient is afebrile and saturating 96% on room air. Currently on heparin drip. Pending CT abdomen pelvis. Patient's chart, labs, images were reviewed and discussed with RN 85-year-old female with past medical history PE on Eliquis, who presents to the ER with complaints of shortness of breath since this morning. She reports associated nonproductive cough, weakness, lethargy and nausea. She was recently treated at [facility] for extensive bilateral pulmonary embolism and DVT in the right lower extremity. She was started on Eliquis with plan to place IVC filter, but this was unable to be performed due to the extent of her clot up to her IVC. She denies any prior history of DVT or PE, and states she has been compliant with her Eliquis. Of note she was receiving physical therapy at home, and her therapist tested positive for COVID-19. Patient and family were tested with negative results. CTA on admission compatible with evolving pulmonary emboli such as in the anterior basal right lower lobe. EKG is concerning for right heart strain. Will admit patient for further medical management. Vitals/I&O Vitals/I&O: Vital Signs Date Time Temp Pulse Resp B/P (MAP) Pulse Ox O2 Delivery O2 Flow Rate FiO2 06/10/20 07:55 Nasal Cannula 2.0 06/10/20 07:00 96.5 88 24 140/79 (99) 83 96.5 I & O 06/09/20 06/09/20 06/10/20 15:00 23:00 07:00 Intake Total 250 ml 50 ml 1100 ml Balance 250 ml 50 ml 1100 ml Physical Exam General: Cooperative, mild distress Heart: Other (No edema) Lungs: Clear Abdomen: Other (No distention) Extremities: No cyanosis, No edema Skin: No rashes Assessment and Plan Assessmemt and Plan Acute hypoxic respiratory distress due to pulmonary emboli and COVID-19 infection COVID-19 positive Failure outpatient treatment Lactic acidosis KAYDEN Vasomotor nephropathy Plan: Covid protocol IV antibiotics Oxygen per nasal cannula DVT prophylaxis Full code Pulmonary and cardiology following Hematology oncology follow Comment Review of Relevant I have reviewed the following items mary (where applicable) has been applied. Justifications for Admission Other Justification PE, failed outpatient treatment SIN MUNOZ III DO Jun 10, 2020 11:37
[2020-06-10 13:37] LABS: HEMOGLOBIN 12.9 g/dL (12.0-15.5); RED BLOOD COUNT 4.03 x10^6/uL (3.50-5.40); RED CELL DISTRIBUTION WIDTH 13.2 % (11.5-14.5); WHITE BLOOD COUNT 9.1 x10^3/uL (4.0-11.0)
--- NOTE | 2020-06-10 14:27 | NUR ---
NOLAN following for discharge planning. Spoke with RN and reviewed chart. Pt COVID result positive. Spoke with Mary from [facility] who will ask if they can take this patient, but not likely per COVID status. Spoke with daughter ([phone]) who would like a referral sent to [facility], , (fax). Patient choice of vendor form completed. NOLAN phoned and faxed referral. NOLAN LVM for admissions x2 with [facility]. NOLAN did check with [facility] at request of daughter but they stopped taking COVID positive patients for SN back in February per the director talent acquisition. Pt continues to require 02. Discharge plan is SNU to back home with family per the daughter. Family has decided against LTC at this time. NOLAN following. Addendum: 06/10/20 at 1435 by ILENE FRANCISCO NOLAN contacted back by Adri in admissions. Referral was received and is being reviewed. NOLAN informed Adri that pt is medically ready for discharge.
[2020-06-10 15:04] VITALS: BP 135/72
--- NOTE | 2020-06-10 15:49 | PDOC ---
PROGRESS NOTES Date of Service: DATE: 06/10/20 TIME: 15:49 Subjective Subjective Slightly confused. Low-grade fever and cough overnight, presently on 2 L per nasal cannula Objective Objective Vital Signs Date Time Temp Pulse Resp B/P (MAP) Pulse Ox O2 Delivery O2 Flow Rate FiO2 06/10/20 15:04 98.1 80 24 135/72 (93) 96 Nasal Cannula 2.0 98.1 Intake and Output 06/10/20 07:00 Intake Total 1400 ml Balance 1400 ml Intake Oral 400 ml IV Total 1000 ml # Voids 3 # Bowel Movements 1 Physical Exam Abdomen: Other (No distention) Heart: Other (No edema) Extremities: No cyanosis, No edema General: Cooperative, mild distress HEENT: Atraumatic Lungs: Other (In no acute distress) MUSCULOSKELETAL: No deformity Neuro: Normal speech Psych/Mental Status: Mental status NL Skin: No rashes Assessment Assessment 1. Acute hypoxic respiratory failure secondary to pulmonary embolus and Covid pneumonia. Continue Eliquis for anticoagulation. Pulmonary team following. 2. Mild troponin elevation: Trop at 0.08 possibly from RV strain from PE. No CP and no significant EKG changes. We will consider 2D echo and ischemic evaluation once recovered from Covid. 3. Acute on chronic diastolic heart failure, better compensated 4. HTN: Controlled 5. CAD: incidental finding noted via CTA, patient presently chest pain-free. Plan outpatient MPI. 6. Hypothyroidism, continue levothyroxine 7. Mild KAYDEN, Improved Comment Review of Relevant I have reviewed the following items mary (where applicable) has been applied. Labs Laboratory Tests Test 06/10/20 12:50 White Blood Count 9.1 x10^3/uL (4.0-11.0) Red Blood Count 4.03 x10^6/uL (3.50-5.40) Hemoglobin 12.9 g/dL (12.0-15.5) Hematocrit 38.0 % (36.0-47.0) Mean Corpuscular Volume 94 fL (79-100) Mean Corpuscular Hemoglobin 32 pg (25-35) Mean Corpuscular Hemoglobin Concent 34 g/dL (31-37) Red Cell Distribution Width 13.2 % (11.5-14.5) Platelet Count 154 x10^3/uL (140-400) Microbiology 06/05/20 Urine Culture - Final, Complete 06/05/20 Antimicrobic Susceptibility - Final, Complete Vitals/I & O Vital Sign - Last 24 Hours 06/09/20 06/09/20 06/09/20 06/10/20 19:00 19:05 23:00 03:00 Temp 98.9 100.3 95.6 98.9 100.3 95.6 Pulse 78 85 98 Resp 24 24 26 B/P (MAP) 165/70 (101) 175/91 (119) 121/60 (80) Pulse Ox 95 95 90 O2 Delivery Nasal Cannula Nasal Cannula Nasal Cannula Nasal Cannula O2 Flow Rate 2.0 2.0 2.0 2.0 06/10/20 06/10/20 06/10/20 06/10/20 07:00 07:55 11:00 15:04 Temp 96.5 96.7 98.1 96.5 96.7 98.1 Pulse 88 95 80 Resp 24 47 24 B/P (MAP) 140/79 (99) 123/57 (79) 135/72 (93) Pulse Ox 83 83 96 O2 Delivery Nasal Cannula Nasal Cannula Nasal Cannula Nasal Cannula O2 Flow Rate 2.0 2.0 2.0 2.0 Intake and Output 06/09/20 06/09/20 06/10/20 15:00 23:00 07:00 Intake Total 250 ml 50 ml 1100 ml Balance 250 ml 50 ml 1100 ml CHARLEY FIERRO MD Jun 10, 2020 15:49
[2020-06-10 19:00] VITALS: BP 143/71
[2020-06-10 23:00] VITALS: BP 148/81
[2020-06-11 03:00] VITALS: BP 175/97
[2020-06-11 07:00] VITALS: BP 162/84
[2020-06-11] MEDS: ASPIRIN ENTERIC COATED 81 MG TABLET.DR. PO SCH (08:42)
[2020-06-11] MEDS: APIXABAN 5 MG TABLET. PO SCH (08:42)
[2020-06-11] MEDS: DEXAMETHASONE SOD PHOS 4 MG/ML VIAL IVP SCH (08:42)
--- NOTE | 2020-06-11 10:10 | SNU/HH DC ---
DISCHARGE ORDERS DISCHARGE INFORMATION: CONDITION ON DISCHARGE: Stable CODE STATUS: Code Status: Full RETIREMENT: SNF STAY <30 DAYS: Yes HOSPICE: HOSPICE: No HOSPICE EVAL & TREAT: No LTAC: ADMIT TO LTAC: No POST DISCHARGE ORDERS: DIET AFTER DISCHARGE: Cardiac TREATMENT/EQUIPMENT ORDERS: Physical Therapy For: Evalulation/Treatment Occupational Therapy For: Evaluation/Treatment DISCHARGE MEDICATIONS: Home Meds Reported Medications Vitamin A (VITAMIN A) 8,000 Unit Capsule, 08806 UNIT PO DAILY for supplement, CAP 06/06/20 Tramadol Hcl (TRAMADOL HCL) 50 Mg Tablet, 50 MG PO Q4HRS PRN for PAIN, TAB 06/06/20 Prednisone (PREDNISONE) 20 Mg Tablet, 1 TAB PO DAILY for uknown, #5 TAB 20 Pantoprazole Sodium (Pantoprazole Sodium) 40 Mg Tablet.dr, 40 MG PO DAILY for gerd, TAB.SR 06/06/20 [place]-3 Fatty Acids/Fish Oil ([place] 3 FISH OIL SOFTGEL) 1 Each Capsule.dr, 1 EACH PO DAILY for hld, CAP 06/06/20 Levothyroxine Sodium (LEVOTHYROXINE SODIUM) 75 Mcg Tablet, 1 TAB PO DAILY for hypothyroid, #30 TAB 5 Refills 06/06/20 Ferrous Sulfate (FERROUS SULFATE) 325 Mg Tablet, 1 TAB PO DAILY for supplement, #30 TAB 3 Refills 06/06/20 Estradiol (ESTRADIOL) 2 Mg Tablet, 1 TAB PO DAILY for hormone replacement, #90 TAB 1 Refill 06/06/20 Budesonide/Formoterol Fumarate (SYMBICORT 80-4.5 MCG INHALER) 10.2 Gm Hfa.aer.ad, 2 PUFF IH BID for asthma, #10.2 GM 5 Refills 06/06/20 Atenolol (ATENOLOL) 50 Mg Tablet, 1 TAB PO DAILY for htn, #30 TAB 5 Refills 06/06/20 Ascorbic Acid (VITAMIN C) 500 Mg Capsule.er, 1 CAP PO DAILY for supplement for 30 Days, #30 CAP 0 Refills 06/06/20 Alendronate Sodium (ALENDRONATE SODIUM) 70 Mg Tablet, 1 TAB PO WEEKLY for osteoporosis, TAB 3 Refills 06/06/20 Albuterol Sulfate (Proair Hfa) 8.5 Gm Hfa.aer.ad, 2 PUFF IH PRN Q4-6HRS PRN for asthma for 21 Days, #1 INHALER 0 Refills 06/06/20 Apixaban (ELIQUIS) 5 Mg Tablet, 5 MG PO BID for blood thinner, TAB 06/06/20 SIN MUNOZ III DO Jun 11, 2020 10:10
--- NOTE | 2020-06-11 10:52 | DS ---
DATE OF DISCHARGE: 06/11/2020 ADMISSION DIAGNOSES: Pulmonary emboli, lactic acidosis, acute kidney injury, possible COVID-19. DISCHARGE DIAGNOSES: Resolving COVID-19, resolving pulmonary emboli, advanced age, debility, hypertension, asthma, urinary tract infection, appendectomy, cholecystectomy, hysterectomy, shoulder surgery. CONSULTS: Hematology/Oncology, Cardiology, and Pulmonary Medicine. HOSPITAL COURSE: The patient is a pleasant elderly female who presented with shortness of breath, cough, weakness, was noted to have PE. She was admitted. The above consults were obtained. We gave her Eliquis, did physical therapy and occupational therapy. We also treated her for COVID-19. Her COVID test was positive. Today, she is doing better. We plan to discharge to residential. DISPOSITION: [facility]. ACTIVITY: As tolerated. DIET: Low sodium. MEDICATIONS: Please see the MRAD. TOTAL TIME: 34 minutes. SIN MUNOZ DO DR: THEODORA/xavier JOB#: [id number] / [id number]
[2020-06-11 11:00] VITALS: BP 148/68
[2020-06-11 12:06] LABS: HEMATOCRIT 36.9 % (36.0-47.0); HEMOGLOBIN 12.7 g/dL (12.0-15.5); RED BLOOD COUNT 3.96 x10^6/uL (3.50-5.40); RED CELL DISTRIBUTION WIDTH 13.3 % (11.5-14.5); WHITE BLOOD COUNT 10.2 x10^3/uL (4.0-11.0)
--- NOTE | 2020-06-11 13:20 | NUR ---
Pt discharged to SNU at [facility]. I called several times to give report with no answer. Pt took insurance cards, cell phone with tank charger, clothes, shoes and red sweater with her.
--- NOTE | 2020-06-11 15:43 | PDOC ---
PULMONARY PROGRESS NOTES DATE: 06/11/20 TIME: 15:42 Subjective PT. remains on 2 liters N/C now on eliquis, low grade fevr overnight and mild cough no overnight concerns Vitals Vital Signs Date Time Temp Pulse Resp B/P (MAP) Pulse Ox O2 Delivery O2 Flow Rate FiO2 06/11/20 11:00 96.5 73 21 148/68 (94) 94 Nasal Cannula 2.0 96.5 ROS: No Nausea, No Chest Pain, No Abdominal Pain, No Increase Cough General: Alert, No acute distress Lungs: Clear Cardiovascular: S1 Abdomen: Soft Neuro Exam: Alert Extremities: No Edema Skin: Warm Labs Laboratory Tests Test 06/10/20 12:50 06/11/20 11:01 White Blood Count 9.1 x10^3/uL (4.0-11.0) 10.2 x10^3/uL (4.0-11.0) Red Blood Count 4.03 x10^6/uL (3.50-5.40) 3.96 x10^6/uL (3.50-5.40) Hemoglobin 12.9 g/dL (12.0-15.5) 12.7 g/dL (12.0-15.5) Hematocrit 38.0 % (36.0-47.0) 36.9 % (36.0-47.0) Mean Corpuscular Volume 94 fL (79-100) 93 fL (79-100) Mean Corpuscular Hemoglobin 32 pg (25-35) 32 pg (25-35) Mean Corpuscular Hemoglobin Concent 34 g/dL (31-37) 35 g/dL (31-37) Red Cell Distribution Width 13.2 % (11.5-14.5) 13.3 % (11.5-14.5) Platelet Count 154 x10^3/uL (140-400) 171 x10^3/uL (140-400) Laboratory Tests Test 06/11/20 11:01 White Blood Count 10.2 x10^3/uL (4.0-11.0) Red Blood Count 3.96 x10^6/uL (3.50-5.40) Hemoglobin 12.7 g/dL (12.0-15.5) Hematocrit 36.9 % (36.0-47.0) Mean Corpuscular Volume 93 fL (79-100) Mean Corpuscular Hemoglobin 32 pg (25-35) Mean Corpuscular Hemoglobin Concent 35 g/dL (31-37) Red Cell Distribution Width 13.3 % (11.5-14.5) Platelet Count 171 x10^3/uL (140-400) Medications Active Scripts Medications Dose Route/Sig Max Daily Dose Days Date Category Vitamin A 8,000 Unit Capsule 10,000 Unit PO DAILY 06/06/20 Reported Tramadol Hcl 50 Mg Tablet 50 Mg PO Q4HRS PRN 06/06/20 Reported Prednisone 20 Mg Tablet 1 Tab PO DAILY 06/06/20 Reported Pantoprazole Sodium 40 Mg Tablet.dr 40 Mg PO DAILY 06/06/20 Reported [place] 3 Fish Oil Softgel ([place]-3 Fatty Acids/Fish Oil) 1 Each Capsule.dr 1 Each PO DAILY 06/06/20 Reported Levothyroxine Sodium 75 Mcg Tablet 1 Tab PO DAILY 06/06/20 Reported Ferrous Sulfate 325 Mg Tablet 1 Tab PO DAILY 06/06/20 Reported Estradiol 2 Mg Tablet 1 Tab PO DAILY 06/06/20 Reported Symbicort 80-4.5 Mcg Inhaler (Budesonide/Formoterol Fumarate) 10.2 Gm Hfa.aer.ad 2 Puff IH BID 06/06/20 Reported Atenolol 50 Mg Tablet 1 Tab PO DAILY 06/06/20 Reported Vitamin C (Ascorbic Acid) 500 Mg Capsule.er 1 Cap PO DAILY 30 06/06/20 Reported Alendronate Sodium 70 Mg Tablet 1 Tab PO WEEKLY 06/06/20 Reported Proair Hfa (Albuterol Sulfate) 8.5 Gm Hfa.aer.ad 2 Puff IH PRN Q4-6HRS PRN 21 06/06/20 Reported Eliquis (Apixaban) 5 Mg Tablet 5 Mg PO BID 06/06/20 Reported Impression . 1. 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 At that time, she was subsequently discharged on Eliquis. She now presents with dyspnea, although she is not requiring any supplemental oxygen. Her CT angiogram is concerning for chronic thromboembolic disease with a clot/filling defect adherent to the proximal wall of the right main pulmonary artery. Additional defects were seen with a web-like morphology in the right lower lobe, basal pulmonary artery. There is also occlusion of the anterior segment of the right upper lobe pulmonary artery. She has evidence of pulmonary hypertension as well. She would require workup for hypercoagulable state as her son has DVT at age 48. She has lost 20 pounds in last one month, which could be related to her Graves' disease, but she would need a malignancy workup as well. 2. No significant tobacco history. 3. No prior history of thromboembolic disease. No recent immobilization trauma and no known cancers. 4. Pulmonary hypertension suspected on CTA chest. 5. Recent bilateral DVT at [facility] 6. Epistaxis , resolved 7. COVID-19 Pneumonia Plan . Patient to discharge today, Continue supplemental oxygen currently on 2 liters N/C I have reviewed the report of the CT angiogram and venous Dopplers from [facility]. She had bilateral PE including very large central embolus in the right pulmonary artery.She also had a 2.1 cm cavitary lesion in RML, now improving. f/u dopplers with resolved DVT.. PE in right pulmonary artery is likely improving. Hold off on IVC filter. Monitor for risk for fall. She will need a repeat CT angiogram in 6-8 weeks to assess for persistent chronic thromboembolic disease. Hypercoagulable panel as an outpatient. CT abdomen and pelvis with no evidence of malignancy Continue Eliquis Continue steroids for full 10 day course DVT/GI PPX PT/OT Social work for D/C planning, pt. would benefit from [facility] LAMBERTO MIMS MD Jun 11, 2020 15:42
--- NOTE | 2020-06-11 16:53 | NUR ---
SW following for discharge planning. Spoke with RN and reviewed chart. Pt to discharge today, 06/11 to [facility]. Discharge orders phoned and faxed. Packet of clinicals updated and ready to be sent with pt. RN to call report. Transportation arranged for 1300. Daughter notified and agreeable. No further SW needs at this time.
== END 2020-06-11 13:20 | DRG 177 ==
LOC: ER 12:39 → 2 NORTH 14:24 → 6 SOUTH 15:54
PROVIDERS: ADMIT Family Medicine; ATTEND Family Medicine
DX: U07.1 COVID-19 (principal); N17.0 Acute kidney failure with tubular necrosis; J96.01 Acute respiratory failure with hypoxia; I26.99 Other pulmonary embolism without acute cor pulmonale; I50.33 Acute on chronic diastolic (congestive) heart failure; J12.89 Other viral pneumonia; N39.0 Urinary tract infection, site not specified; E87.2 Acidosis; E03.9 Hypothyroidism, unspecified; E05.00 Thyrotoxicosis with diffuse goiter without thyrotoxic crisis or storm; E78.5 Hyperlipidemia, unspecified; I11.0 Hypertensive heart disease with heart failure; M19.90 Unspecified osteoarthritis, unspecified site; I25.10 Atherosclerotic heart disease of native coronary artery without angina pectoris; I27.20 Pulmonary hypertension, unspecified; J45.909 Unspecified asthma, uncomplicated; M81.0 Age-related osteoporosis without current pathological fracture; Z79.01 Long term (current) use of anticoagulants; Z86.718 Personal history of other venous thrombosis and embolism; Z90.710 Acquired absence of both cervix and uterus; Z88.0 Allergy status to penicillin; Z90.49 Acquired absence of other specified parts of digestive tract
CPT/HCPCS: 36415; 71275; 74176; 80048; 80053; 80061; 81001; 83605; 83735; 83880; 84100; 84145; 84443; 84484; 85007; 85025; 85027; 85520; 85610; 85730; 87077; 87086; 87186; 87804; 93005; 93970; 96361; 96365; 96376; J1100; J1644; J1956; J7030; Q9967; U0003; 97110-GP; 97530-GO; 97530-GP; 97535-GO; 99285-25; G0378